=== PATIENT | female | born 1950 | race Caucasian/White ===

== ENCOUNTER → 2016-09-01 | Outpatient (CLI) | payer MEDICAID ==
[2016-09-01 11:31] LABS: CHLORIDE,CL 108 mmol/L (98-110); SODIUM,NA 138 mmol/L (136-146)
== END ==
LOC: MW.CHIM 10:50
PROVIDERS: ATTEND Internal Medicine
DX: I10 Essential (primary) hypertension (principal)
CPT/HCPCS: 36415; 80053; 80061; 84443; 85025

== ENCOUNTER 2019-03-17 06:12 | Observation (INO) | payer MEDICAID, MEDICARE ==
--- NOTE | 2019-03-17 06:45 | EDM.PDOC ---
<Toni Abbott - Last Filed: 03/17/19 06:47> ED HPI GENERAL MEDICAL PROBLEM - General Chief Complaint: ENT Problem Stated Complaint: FALL- FACIAL TRAUMA Time Seen by Provider: 03/17/19 06:45 Source of Information: Reports: Patient - History of Present Illness INITIAL COMMENTS - FREE TEXT/NARRATIVE: HISTORY AND PHYSICAL: History of present illness: [Patient with dementia presents with syncopal episode and/or slip and fall, she is not certain if she passed out after rising from bed or slipped and fell, she struck her face on a bedside stand, she did have epistaxis which has resolved] Current denies fever nausea vomiting diarrhea constipation chest pain shortness breath headache dizziness or palpitation no bowel or urine symptoms Review of systems: As per history of present illness and below otherwise all systems reviewed and negative. Past medical history: As per history of present illness and as reviewed below otherwise noncontributory. Surgical history: As per history of present illness and as reviewed below otherwise noncontributory. Social history: No reported history of drug or alcohol abuse. Family history: As per history of present illness and as reviewed below otherwise noncontributory. Physical exam: HEENT: Atraumatic, normocephalic, pupils reactive, negative for conjunctival pallor or scleral icterus, mucous membranes moist, throat clear, neck supple, nontender, trachea midline. Mild swelling left facial Lungs: Clear to auscultation, breath sounds equal bilaterally, chest nontender. Heart: S1S2, regular, negative for clicks, rubs, or JVD. Abdomen: Soft, nondistended, nontender. Negative for masses or hepatosplenomegaly. Negative for costovertebral tenderness. Pelvis: Stable nontender. Genitourinary: Deferred. Rectal: Deferred. Extremities: Atraumatic, negative for cords or calf pain. Neurovascular unremarkable. Neuro: Awake, alert, oriented. Cranial nerves II through XII unremarkable. Cerebellum unremarkable. Motor and sensory unremarkable throughout. Exam nonfocal. Diagnostics: [CBC CMP UA troponin EKG Chest 1 view pelvis 1 view ] CT head, cervical spine, maxillofacial no contrast Therapeutics: [] Impression: [ epistaxis resolved facial contusion/ injury ] chronic history baseline Definitive disposition and diagnosis as appropriate pending reevaluation and review of above. 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: Musculoskeletal History: Reports: None Neurological History: Reports: Alzheimers Disease Psychiatric History: Reports: Alzheimers Disease Endocrine/Metabolic History: Reports: None Hematologic History: Reports: None Immunologic History: Reports: None Oncologic (Cancer) History: Reports: None Dermatologic History: Reports: None - Infectious Disease History Infectious Disease History: Reports: Meningitis - Past Surgical History Head Surgeries/Procedures: Reports: None HEENT Surgical History: Reports: None Cardiovascular Surgical History: Reports: None Respiratory Surgical History: Reports: None GI Surgical History: Reports: None Female Surgical History: Reports: Oophorectomy Endocrine Surgical History: Reports: None Musculoskeletal Surgical History: Reports: None Social & Family History - Family History Family Medical History: Noncontributory Cardiac: Reports: Hypertension - Tobacco Use Smoking Status *Q: Never Smoker - Recreational Drug Use Recreational Drug Use: No Course - Vital Signs Last Recorded V/S: Last Vital Signs Temp 35.8 C 03/17/19 06:20 Pulse 66 03/17/19 07:05 Resp 16 03/17/19 07:05 BP 170/78 H 03/17/19 07:05 Pulse Ox 99 03/17/19 07:05 - Orders/Labs/Meds Orders: Active Orders 24 hr Category Date Time Status EKG Documentation Completion [RC] STAT Care 03/17/19 06:45 Active UA RFX RADU AND CULT IF INDIC [URIN] Stat Lab 03/17/19 08:02 Ordered Labs: Laboratory Tests 03/17/19 03/17/19 03/17/19 Range/Units 07:00 07:00 07:00 WBC 9.39 (4.0-11.0) K/uL RBC 3.99 L (4.30-5.90) M/uL Hgb 12.5 (12.0-16.0) g/dL Hct 36.9 (36.0-46.0) % MCV 92.5 (80.0-98.0) fL MCH 31.3 (27.0-32.0) pg MCHC 33.9 (31.0-37.0) g/dL RDW Std Deviation 44.7 (28.0-62.0) fl RDW Coeff of Sb 13 (11.0-15.0) % Plt Count 243 (150-400) K/uL MPV 9.50 (7.40-12.00) fL Neut % (Auto) 68.8 (48.0-80.0) % Lymph % (Auto) 19.7 (16.0-40.0) % [place] % (Auto) 6.8 (0.0-15.0) % Eos % (Auto) 4.3 (0.0-7.0) % Baso % (Auto) 0.4 (0.0-1.5) % Neut # (Auto) 6.5 H (1.4-5.7) K/uL Lymph # (Auto) 1.9 (0.6-2.4) K/uL [place] # (Auto) 0.6 (0.0-0.8) K/uL Eos # (Auto) 0.4 (0.0-0.7) K/uL Baso # (Auto) 0.0 (0.0-0.1) K/uL Nucleated RBC % 0.0 /100WBC Nucleated RBCs # 0 K/uL INR 1.03 Sodium 140 (136-145) mmol/L Potassium 3.3 L (3.5-5.1) mmol/L Chloride 108 H (98-107) mmol/L Carbon Dioxide 20.7 L (21.0-32.0) mmol/L BUN 19 H (7.0-18.0) mg/dL Creatinine 0.9 (0.6-1.0) mg/dL Est Cr Clr Drug Dosing TNP Estimated GFR (MDRD) > 60.0 ml/min Glucose 100 (74-106) mg/dL Calcium 8.6 (8.5-10.1) mg/dL Total Bilirubin 0.9 (0.2-1.0) mg/dL AST 14 L (15-37) IU/L ALT 19 (14-63) IU/L Alkaline Phosphatase 79 (46-116) U/L Troponin I < 0.050 (0.000-0.056) ng/mL Total Protein 7.1 (6.4-8.2) g/dL Albumin 3.4 (3.4-5.0) g/dL Globulin 3.7 (2.6-4.0) g/dL Albumin/Globulin Ratio 0.9 (0.9-1.6) Departure - Departure Disposition: Refer to Observation Clinical Impression: Syncope, Fall, Trauma - Discharge Information Referrals: Tiffanie Houston MD [Primary Care Provider] - Forms: ED Department Discharge <Reji Newsome - Last Filed: 03/17/19 08:13> ED ROS GENERAL - Review of Systems Review Of Systems: Comprehensive ROS is negative, except as noted in HPI. ED EXAM, GENERAL - Physical Exam Exam: See Below (See dictation) Departure - Departure Time of Disposition: 08:12 Condition: Good
[2019-03-17 07:26] LABS: BLOOD UREA NITROGEN,BUN 19 mg/dL (7.0-18.0); CARBON DIOXIDE,CO2 20.7 mmol/L (21.0-32.0); CHLORIDE,CL 108 mmol/L (98-107); GLUCOSE RANDOM 100 mg/dL (74-106); POTASSIUM,K 3.3 mmol/L (3.5-5.1); SODIUM,NA 140 mmol/L (136-145)
--- NOTE | 2019-03-17 07:47 | CR ---
INDICATION: Syncope; patient fell. COMPARISON: None. TECHNIQUE: Portable AP chest. FINDINGS: Mild cardiomegaly. No acute pneumonic infiltrates or CHF. No pneumothorax or pleural effusion. Impression: 1. No acute pathology. 2. Mild cardiomegaly. Dictated by Giovanny oRberts MD @ Mar 17 2019 7:42AM Signed by Dr. Giovanny Roberts @ Mar 17 2019 7:44AM
--- NOTE | 2019-03-17 07:51 | CT ---
INDICATION: Syncope; patient fell. COMPARISON: CT head without intravenous contrast July 30, 2015. TECHNIQUE: CT head without intravenous contrast; coronal and sagittal reformats. FINDINGS: No intracranial hemorrhage. No mass lesions. No evidence of shift of the midline structures. The calvarium is unremarkable. IMPRESSION: 1. No acute pathology. 2. No intracranial hemorrhage. 3. No mass lesions or shift of the midline structures. 4. No interval change. Please note that all CT scans at this facility use dose modulation, iterative reconstruction, and/or weight-based dosing when appropriate to reduce radiation dose to as low as reasonably achievable. Dictated by Giovanny Roberts MD @ Mar 17 2019 7:42AM Signed by Dr. Giovanny Roberts @ Mar 17 2019 7:48AM
--- NOTE | 2019-03-17 07:53 | CR ---
INDICATION: Syncope; patient fell. TECHNIQUE: Single AP radiograph pelvis. FINDINGS: No evidence of fracture. No bone or soft tissue abnormalities. Disc space narrowing and disk degeneration lower lumbar spine. IMPRESSION: 1. Negative rate radiographic examination of the pelvis. 2. Disc space narrowing and disc degeneration lower lumbar spine. Dictated by Giovanny Roberts MD @ Mar 17 2019 7:42AM Signed by Dr. Giovanny Roberts @ Mar 17 2019 7:52AM
--- NOTE | 2019-03-17 07:53 | CT ---
INDICATION: Syncope; patient fell. COMPARISON: None. TECHNIQUE: CT cervical spine without intravenous contrast; coronal and sagittal reformats. FINDINGS: No evidence of acute fracture or dislocation. C1-C2 articulation is unremarkable. The intervertebral disc spaces are well preserved and fail to reveal any abnormalities. The lung apices are unremarkable. IMPRESSION: Negative CT cervical spine. Please note that all CT scans at this facility use dose modulation, iterative reconstruction, and/or weight-based dosing when appropriate to reduce radiation dose to as low as reasonably achievable. Dictated by Giovanny Roberts MD @ Mar 17 2019 7:42AM Signed by Dr. Giovanny Roberts @ Mar 17 2019 7:51AM
--- NOTE | 2019-03-17 07:59 | CT ---
INDICATION: Syncope; patient fell. COMPARISON: CT head without intravenous contrast July 30, 2015. TECHNIQUE: CT facial bones without intravenous contrast; coronal and sagittal reformats. FINDINGS: No evidence of fracture involving the facial bones. Swollen nasal turbinates bilateral more on the left. chronic mucoperiosteal thickening involving the ethmoid and frontal sinuses bilateral. No fluid levels identified within the paranasal sinuses. The temporomandibular articulations are unremarkable. The zygomatic arches are normal. No pathology involving the orbits on either side. Soft tissue swelling identified overlying the anterior aspect of the left maxilla. Impression : 1. Soft tissue swelling overlying the anterior aspect left maxilla. 2. Swollen nasal turbinates bilateral more on the left. 3. No evidence of fracture involving the facial bones. Please note that all CT scans at this facility use dose modulation, iterative reconstruction, and/or weight-based dosing when appropriate to reduce radiation dose to as low as reasonably achievable. Dictated by Giovanny Roberts MD @ Mar 17 2019 7:42AM Signed by Dr. Giovanny Roberts @ Mar 17 2019 7:57AM
[2019-03-17] MEDS ORDERED: Pneumococcal Polyvalent-23 Vaccine 0.5 ML SDV IM ONE (09:18)
[2019-03-17] MEDS ORDERED: Ondansetron 4 MG Tab.DIS PO PRN (11:50)
[2019-03-17] MEDS ORDERED: Acetaminophen 325 MG Tab PO PRN (11:50)
[2019-03-17] MEDS ORDERED: Ondansetron 4 MG/2 ML SDV IVPUSH PRN (11:50)
[2019-03-17] MEDS ORDERED: Diltiazem 180 MG Cap.CD PO SCH (11:54)
[2019-03-17] MEDS ORDERED: Sodium Chloride 0.9% 1,000 ML IV ONE (11:55)
[2019-03-17] MEDS ORDERED: Potassium Chloride 20 MEQ Tab.ER PO ONE (12:02)
--- NOTE | 2019-03-17 12:06 | PCM.HP.2 ---
H&P History of Present Illness - General Date of Service: 03/17/19 Admit Problem/Dx: Admission Diagnosis/Problem Admission Diagnosis/Problem Syncope - History of Present Illness Initial Comments - Free Text/Narative: 69-year-old female presented to ER after falling when trying to get out of her bed at around 5 AM this morning. She has a PMH of alzheimer's dementia and HTN. She lives with her daughter who heard her fall and found her lying on the floor of her bedroom. Patient reports that she fell and hit her head on her night dresser. Patient reports that she remembers falling but cannot provide any further details. Daughter reports that she cannot provide any further specifics of the fall as the patient has alzheimer's dementia and keeps changing the story of the fall. Daughter reports that patient was not unconscious when she found her and was not on the floor for very long as she helped her get up as soon she heard her fall from her bedroom next door. When asked what caused the fall, the patient reports the she slipped on her socks. Patient has no history of syncope or heart conditions. No stroke history. Daughter reports that patient has been in her normal state of health. She reports that she is unsteady on her feet most of the time. Patient is complaining of some facial pain but otherwise has no complaints. Daughter reports that patient does not eat or drink much at home. In the ER, CT neck, CT facial bones, CT head, pelvic x-ray and CXR were all negative for any acute pathology. Patient admitted for further evaluation. nasal bridge Pain Score (Numeric/FACES): 3 - Related Data Allergies/Adverse Reactions: Allergies Allergy/AdvReac Type Severity Reaction Status Date / Time No Known Allergies Allergy Verified 03/17/19 09:26 Home Medications: Home Meds Diltiazem HCl [Cartia Xt] 180 mg PO DAILY 04/23/15 [History] Donepezil [Aricept] 5 mg PO BEDTIME 04/23/15 [History] Losartan Potassium 100 mg PO DAILY 03/17/19 [History] Megestrol Acetate 20 mg PO DAILY 03/17/19 [History] Past Medical History HEENT History: Reports: None Cardiovascular History: Reports: Hypertension Respiratory History: Reports: None Gastrointestinal History: Reports: None Genitourinary History: Reports: None 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 History: Reports: None Neurological History: Reports: Alzheimers Disease Psychiatric History: Reports: Alzheimers Disease Endocrine/Metabolic History: Reports: None Hematologic History: Reports: None Immunologic History: Reports: None Oncologic (Cancer) History: Reports: None Dermatologic History: Reports: None - Infectious Disease History Infectious Disease History: Reports: Chicken Pox, Measles, Meningitis, Mumps, Rubella - Past Surgical History Head Surgeries/Procedures: Reports: None HEENT Surgical History: Reports: None Cardiovascular Surgical History: Reports: None Respiratory Surgical History: Reports: None GI Surgical History: Reports: None Female Surgical History: Reports: Oophorectomy Endocrine Surgical History: Reports: None Musculoskeletal Surgical History: Reports: None Social & Family History - Family History Family Medical History: Noncontributory Cardiac: Reports: Hypertension - Tobacco Use Smoking Status *Q: Never Smoker Second Hand Smoke Exposure: No - Caffeine Use Caffeine Use: Reports: Coffee - Recreational Drug Use Recreational Drug Use: No H&P Review of Systems - Review of Systems: Review Of Systems: Comprehensive ROS is negative, except as noted in HPI. Exam - Exam Exam: See Below - Vital Signs Vital Signs: Last Vital Signs Temp 97.4 F 03/17/19 09:11 Pulse 72 03/17/19 09:11 Resp 18 03/17/19 09:11 BP 176/76 H 03/17/19 09:11 Pulse Ox 100 03/17/19 09:11 Weight: 122 lb 5.705 oz - Exam General: Alert, Cooperative, Mild Distress HEENT: Conjunctiva Clear, EOMI, Mucosa Moist & [place], Posterior Pharynx Clear, Other (bruising around nose) Neck: Supple, Trachea Midline Lungs: Clear to Auscultation, Normal Respiratory Effort Cardiovascular: Regular Rate, Regular Rhythm GI/Abdominal Exam: Normal Bowel Sounds, Soft, Non-Tender, No Distention Extremities: Normal Inspection, No Pedal Edema Peripheral Pulses: 2+: Posterior Tibial (L), Posterior Tibial (R) Skin: Warm, Dry, Intact Neurological: Cranial Nerves Intact, Strength Equal Bilateral, Normal Speech, Normal Tone Neuro Extensive - Mental Status: Alert Psychiatric: Alert, Normal Affect, Normal Mood - Patient Data Lab Results Last 24 hrs: Laboratory Results - last 24 hr 03/17/19 03/17/19 03/17/19 Range/Units 07:00 07:00 07:00 WBC 9.39 (4.0-11.0) K/uL RBC 3.99 L (4.30-5.90) M/uL Hgb 12.5 (12.0-16.0) g/dL Hct 36.9 (36.0-46.0) % MCV 92.5 (80.0-98.0) fL MCH 31.3 (27.0-32.0) pg MCHC 33.9 (31.0-37.0) g/dL RDW Std Deviation 44.7 (28.0-62.0) fl RDW Coeff of Sb 13 (11.0-15.0) % Plt Count 243 (150-400) K/uL MPV 9.50 (7.40-12.00) fL Neut % (Auto) 68.8 (48.0-80.0) % Lymph % (Auto) 19.7 (16.0-40.0) % [place] % (Auto) 6.8 (0.0-15.0) % Eos % (Auto) 4.3 (0.0-7.0) % Baso % (Auto) 0.4 (0.0-1.5) % Neut # (Auto) 6.5 H (1.4-5.7) K/uL Lymph # (Auto) 1.9 (0.6-2.4) K/uL [place] # (Auto) 0.6 (0.0-0.8) K/uL Eos # (Auto) 0.4 (0.0-0.7) K/uL Baso # (Auto) 0.0 (0.0-0.1) K/uL Nucleated RBC % 0.0 /100WBC Nucleated RBCs # 0 K/uL INR 1.03 Sodium 140 (136-145) mmol/L Potassium 3.3 L (3.5-5.1) mmol/L Chloride 108 H (98-107) mmol/L Carbon Dioxide 20.7 L (21.0-32.0) mmol/L BUN 19 H (7.0-18.0) mg/dL Creatinine 0.9 (0.6-1.0) mg/dL Est Cr Clr Drug Dosing TNP Estimated GFR (MDRD) > 60.0 ml/min Glucose 100 (74-106) mg/dL Calcium 8.6 (8.5-10.1) mg/dL Total Bilirubin 0.9 (0.2-1.0) mg/dL AST 14 L (15-37) IU/L ALT 19 (14-63) IU/L Alkaline Phosphatase 79 (46-116) U/L Troponin I < 0.050 (0.000-0.056) ng/mL Total Protein 7.1 (6.4-8.2) g/dL Albumin 3.4 (3.4-5.0) g/dL Globulin 3.7 (2.6-4.0) g/dL Albumin/Globulin Ratio 0.9 (0.9-1.6) Urine Color Urine Appearance Urine pH (5.0-8.0) Ur Specific [place] (1.001-1.035) Urine Protein (NEGATIVE) mg/dL Urine Glucose (UA) (NEGATIVE) mg/dL Urine Ketones (NEGATIVE) mg/dL Urine Occult Blood (NEGATIVE) Urine Nitrite (NEGATIVE) Urine Bilirubin (NEGATIVE) Urine Urobilinogen (<2.0) EU/dL Ur Leukocyte Esterase (NEGATIVE) Urine RBC (0-2/HPF) Urine WBC (0-5/HPF) Ur Epithelial Cells (NONE-FEW) Urine Bacteria (NEGATIVE) 03/17/19 Range/Units 08:02 WBC (4.0-11.0) K/uL RBC (4.30-5.90) M/uL Hgb (12.0-16.0) g/dL Hct (36.0-46.0) % MCV (80.0-98.0) fL MCH (27.0-32.0) pg MCHC (31.0-37.0) g/dL RDW Std Deviation (28.0-62.0) fl RDW Coeff of Sb (11.0-15.0) % Plt Count (150-400) K/uL MPV (7.40-12.00) fL Neut % (Auto) (48.0-80.0) % Lymph % (Auto) (16.0-40.0) % [place] % (Auto) (0.0-15.0) % Eos % (Auto) (0.0-7.0) % Baso % (Auto) (0.0-1.5) % Neut # (Auto) (1.4-5.7) K/uL Lymph # (Auto) (0.6-2.4) K/uL [place] # (Auto) (0.0-0.8) K/uL Eos # (Auto) (0.0-0.7) K/uL Baso # (Auto) (0.0-0.1) K/uL Nucleated RBC % /100WBC Nucleated RBCs # K/uL INR Sodium (136-145) mmol/L Potassium (3.5-5.1) mmol/L Chloride (98-107) mmol/L Carbon Dioxide (21.0-32.0) mmol/L BUN (7.0-18.0) mg/dL Creatinine (0.6-1.0) mg/dL Est Cr Clr Drug Dosing Estimated GFR (MDRD) ml/min Glucose (74-106) mg/dL Calcium (8.5-10.1) mg/dL Total Bilirubin (0.2-1.0) mg/dL AST (15-37) IU/L ALT (14-63) IU/L Alkaline Phosphatase (46-116) U/L Troponin I (0.000-0.056) ng/mL Total Protein (6.4-8.2) g/dL Albumin (3.4-5.0) g/dL Globulin (2.6-4.0) g/dL Albumin/Globulin Ratio (0.9-1.6) Urine Color YELLOW Urine Appearance CLEAR Urine pH 6.0 (5.0-8.0) Ur Specific [place] 1.010 (1.001-1.035) Urine Protein NEGATIVE (NEGATIVE) mg/dL Urine Glucose (UA) NEGATIVE (NEGATIVE) mg/dL Urine Ketones NEGATIVE (NEGATIVE) mg/dL Urine Occult Blood SMALL H (NEGATIVE) Urine Nitrite NEGATIVE (NEGATIVE) Urine Bilirubin NEGATIVE (NEGATIVE) Urine Urobilinogen 0.2 (<2.0) EU/dL Ur Leukocyte Esterase NEGATIVE (NEGATIVE) Urine RBC 0-3 (0-2/HPF) Urine WBC 0-3 (0-5/HPF) Ur Epithelial Cells OCCASIONAL (NONE-FEW) Urine Bacteria FEW (NEGATIVE) Result Diagrams: 03/17/19 07:00 03/17/19 07:00 Problem List Initiated/Reviewed/Updated: Yes Orders Last 24hrs: Active Orders 24 hr Category Date Time Status Patient Status [ADT] Stat ADT 03/17/19 08:13 Active Antiembolic Devices [RC] PER UNIT ROUTINE Care 03/17/19 11:51 Active Oxygen Therapy [RC] PRN Care 03/17/19 11:50 Active Telemetry Monitoring [Cardiac Monitoring] [RC] . Care 03/17/19 08:55 Active DIRECTED Telemetry Monitoring [Cardiac Monitoring] [RC] . Care 03/17/19 11:54 Active DIRECTED Up With Assistance [RC] ASDIRECTED Care 03/17/19 11:50 Active VTE/DVT Education [RC] PER UNIT ROUTINE Care 03/17/19 11:50 Active Vital Signs [RC] Q4H Care 03/17/19 11:50 Active Consult to Physical Therapy [PT Evaluation and Cons 03/17/19 11:54 Active Treatment] [CONS] Routine Regular Diet [DIET] Diet 03/17/19 Breakfast Active Acetaminophen [Tylenol] Med 03/17/19 11:50 Ordered 650 mg PO Q4H PRN Diltiazem [Cardizem CD] Med 03/17/19 11:54 Ordered 180 mg PO DAILY Donepezil [Aricept] Med 03/17/19 21:00 Ordered 5 mg PO BEDTIME Ondansetron [Zofran ODT] Med 03/17/19 11:50 Ordered 4 mg PO Q4H PRN Ondansetron [Zofran] Med 03/17/19 11:50 Ordered 4 mg IVPUSH Q4H PRN Potassium Chloride [Klor-Con M20] Med 03/17/19 12:02 Once 40 meq PO ONETIME ONE Sodium Chloride 0.9% [Normal Saline] 1,000 ml Med 03/17/19 11:55 Ordered IV STAT Sequential Compression Device [OM.PC] Per Unit Routine Oth 03/17/19 11:50 Ordered Resuscitation Status Routine Resus Stat 03/17/19 11:50 Ordered Medication Orders Acetaminophen (Tylenol) 650 mg PO Q4H PRN PRN Reason: Pain (Mild 1-3)/fever Diltiazem HCl (Cardizem Cd) 180 mg PO DAILY JAIDA Donepezil HCl (Aricept) 5 mg PO BEDTIME JAIDA Sodium Chloride (Normal Saline) 1,000 mls @ 75 mls/hr IV STAT ONE Stop: 03/18/19 01:14 Ondansetron HCl (Zofran Odt) 4 mg PO Q4H PRN PRN Reason: nausea, able to take PO Ondansetron HCl (Zofran) 4 mg IVPUSH Q4H PRN PRN Reason: Nausea Potassium Chloride (Klor-Con M20) 40 meq PO ONETIME ONE Stop: 03/17/19 12:03 Assessment/Plan Comment:: Assessment: 1. Head trauma s/p fall. 2. Hypokalemia, mild. 3. HTN. 4. History of Alzheimer's dementia. Plan: 1. Will keep patient on telemetry and monitor for any cardiac events, hydrate with IV NS 1L @ 75 cc/hr, order PT/OT. Will continue to monitor. CT scans showed no acute fractures or bleeding. Patient is poor historian and cannot provide symptoms experienced prior to falling. 2. For hypokalemia, replete with 40 mEq KCL PO. 3. For past medical history, will continue home medications.
[2019-03-17] MEDS: Memantine 10 MG Tab PO SCH (14:55)
[2019-03-17] MEDS ORDERED: Donepezil 5 MG Tab PO SCH (21:00)
[2019-03-18 06:23] LABS: BLOOD UREA NITROGEN,BUN 13 mg/dL (7.0-18.0); CARBON DIOXIDE,CO2 20.5 mmol/L (21.0-32.0); CHLORIDE,CL 109 mmol/L (98-107); GLUCOSE RANDOM 99 mg/dL (74-106); POTASSIUM,K 3.8 mmol/L (3.5-5.1); SODIUM,NA 141 mmol/L (136-145)
[2019-03-18] MEDS ORDERED: Diltiazem 180 MG Cap.CD PO SCH (09:00)
[2019-03-18] MEDS ORDERED: Losartan 50 MG Tab PO SCH (09:00)
[2019-03-18] MEDS: Memantine 10 MG Tab PO SCH (09:28)
[2019-03-18 12:48] VITALS: BP 131/74; PULSE 86
--- NOTE | 2019-03-18 12:52 | PCM.DCSUM1 ---
<Doug Mohamud - Last Filed: 03/18/19 12:47> Discharge Summary - Hospital Course Free Text/Narrative:: 69-year-old female admitted after traumatic head injury after falling at home. She has a PMH of alzheimer's dementia and HTN. Due to patient's dementia, she was not able to provided specifics of her fall. She lives with her daughter who heard her fall and found her lying on the floor and was awake. No witnessed seizure activity. No bowel or bladder incontinence. CT neck was negative. CT facial was negative for any fractures. Pelvic x-rays and CXR's were also negative. Patient was placed on telemetry overnight and there were no events reported. She remained hemodynamically stable throughout her hospitalization. No recurrence of falls. PT was also consulted during her stay for ambulation. Patient discharged in stable condition. Advised to follow-up with her PCP and neurologist. - Discharge Data Discharge Date: 03/18/19 Discharge Disposition: Home, Self-Care 01 Condition: Stable - Referral to Home Health Primary Care Physician: Tiffanie Houston MD - Patient Summary/Data Consults: Consultations 03/17/19 11:54 Consult to Physical Therapy [PT Evaluation and Treatment] [CONS] Routine - Patient Instructions Diet: Regular Diet as Tolerated Activity: As Tolerated Notify Provider of: Fever, Increased Pain, Swelling and Redness, Drainage, Nausea and/or Vomiting - Discharge Plan *PRESCRIPTION DRUG MONITORING PROGRAM REVIEWED*: Not Applicable *COPY OF PRESCRIPTION DRUG MONITORING REPORT IN PATIENT [place]: Not Applicable Home Medications: Home Meds Donepezil [Aricept] 5 mg PO BEDTIME 04/23/15 [History] Losartan Potassium 50 mg PO DAILY 03/17/19 [History] Megestrol Acetate 20 mg PO DAILY 03/17/19 [History] Memantine [Namenda] 10 mg PO DAILY 03/17/19 [History] Patient Handouts: Near-Syncope, [id number] Referrals: Tiffanie Houston MD [Primary Care Provider] - 03/24/19 9:00 am - Discharge Summary/Plan Comment DC Time >30 min.: No - Patient Data Vitals - Most Recent: Last Vital Signs Temp 97.6 F 03/18/19 08:00 Pulse 75 03/18/19 08:00 Resp 16 03/18/19 08:00 BP 149/82 H 03/18/19 09:28 Pulse Ox 99 03/18/19 11:50 Weight - Most Recent: 55.3 kg I&O - Last 24 hours: Intake & Output 03/17/19 03/18/19 03/18/19 22:59 06:59 14:59 Intake Total 893 600 800 Output Total 350 1100 Balance 543 -500 800 Lab Results - Last 24 hrs: Laboratory Results - last 24 hr 03/17/19 03/18/19 03/18/19 Range/Units 07:00 05:45 05:45 WBC 8.48 (4.0-11.0) K/uL RBC 4.08 L (4.30-5.90) M/uL Hgb 12.8 (12.0-16.0) g/dL Hct 37.8 (36.0-46.0) % MCV 92.6 (80.0-98.0) fL MCH 31.4 (27.0-32.0) pg MCHC 33.9 (31.0-37.0) g/dL RDW Std Deviation 45.6 (28.0-62.0) fl RDW Coeff of Sb 14 (11.0-15.0) % Plt Count 253 (150-400) K/uL MPV 9.90 (7.40-12.00) fL Neut % (Auto) 66.6 (48.0-80.0) % Lymph % (Auto) 22.3 (16.0-40.0) % [place] % (Auto) 8.3 (0.0-15.0) % Eos % (Auto) 2.6 (0.0-7.0) % Baso % (Auto) 0.2 (0.0-1.5) % Neut # (Auto) 5.7 (1.4-5.7) K/uL Lymph # (Auto) 1.9 (0.6-2.4) K/uL [place] # (Auto) 0.7 (0.0-0.8) K/uL Eos # (Auto) 0.2 (0.0-0.7) K/uL Baso # (Auto) 0.0 (0.0-0.1) K/uL Nucleated RBC % 0.0 /100WBC Nucleated RBCs # 0 K/uL Sodium 141 (136-145) mmol/L Potassium 3.8 (3.5-5.1) mmol/L Chloride 109 H (98-107) mmol/L Carbon Dioxide 20.5 L (21.0-32.0) mmol/L BUN 13 (7.0-18.0) mg/dL Creatinine 0.8 (0.6-1.0) mg/dL Est Cr Clr Drug Dosing 46.33 mL/min Estimated GFR (MDRD) > 60.0 ml/min Glucose 99 (74-106) mg/dL Calcium 8.5 (8.5-10.1) mg/dL Magnesium 2.0 (1.8-2.4) mg/dL Med Orders - Current: Current Medications Acetaminophen (Tylenol) 650 mg PO Q4H PRN PRN Reason: Pain (Mild 1-3)/fever Last Admin: 03/17/19 22:58 Dose: 650 mg Donepezil HCl (Aricept) 5 mg PO BEDTIME [facility] Last Admin: 03/17/19 20:54 Dose: 5 mg Losartan Potassium (Cozaar) 50 mg PO DAILY [facility] Last Admin: 03/18/19 09:28 Dose: 50 mg Memantine (Namenda) 10 mg PO DAILY [facility] Last Admin: 03/18/19 09:28 Dose: 10 mg Ondansetron HCl (Zofran Odt) 4 mg PO Q4H PRN PRN Reason: nausea, able to take PO Ondansetron HCl (Zofran) 4 mg IVPUSH Q4H PRN PRN Reason: Nausea Discontinued Medications Diltiazem HCl (Cardizem Cd) 180 mg PO DAILY [facility] Diltiazem HCl (Cardizem Cd) 180 mg PO DAILY [facility] Last Admin: 03/17/19 12:15 Dose: 180 mg Sodium Chloride (Normal Saline) 1,000 mls @ 75 mls/hr IV STAT ONE Stop: 03/18/19 01:14 Last Admin: 03/17/19 12:07 Dose: 75 mls/hr Pneumococcal Polyvalent Vaccine (Pneumovax 23) 0.5 ml IM .ONCE ONE Stop: 03/17/19 09:19 Last Admin: 03/18/19 12:42 Dose: Not Given Potassium Chloride (Klor-Con M20) 40 meq PO ONETIME ONE Stop: 03/17/19 12:03 Last Admin: 03/17/19 12:15 Dose: 40 meq - Exam General: Reports: Alert, Oriented, No Acute Distress HEENT: Reports: Other (ecchymosis over left side of nose, left cheek and left jaw) Lungs: Reports: Clear to Auscultation, Normal Respiratory Effort Cardiovascular: Reports: Regular Rate, Regular Rhythm GI/Abdominal Exam: Normal Bowel Sounds, Soft, Non-Tender, No Distention Extremities: Normal Inspection, No Pedal Edema Psy/Mental Status: Reports: Alert <Shashi Smith - Last Filed: 03/18/19 19:00> Discharge Summary - Referral to Home Health Primary Care Physician: Tiffanie Houston MD - Patient Summary/Data Consults: Consultations 03/17/19 11:54 Consult to Physical Therapy [PT Evaluation and Treatment] [CONS] Routine - Patient Data Vitals - Most Recent: Last Vital Signs Temp 36.7 C 03/18/19 12:00 Pulse 86 03/18/19 12:00 Resp 20 03/18/19 12:00 BP 131/74 03/18/19 12:00 Pulse Ox 100 03/18/19 12:00 I&O - Last 24 hours: Intake & Output 03/18/19 03/18/19 03/18/19 06:59 14:59 22:59 Intake Total 600 800 Output Total 1100 Balance -500 800 Lab Results - Last 24 hrs: Laboratory Results - last 24 hr 03/18/19 03/18/19 Range/Units 05:45 05:45 WBC 8.48 (4.0-11.0) K/uL RBC 4.08 L (4.30-5.90) M/uL Hgb 12.8 (12.0-16.0) g/dL Hct 37.8 (36.0-46.0) % MCV 92.6 (80.0-98.0) fL MCH 31.4 (27.0-32.0) pg MCHC 33.9 (31.0-37.0) g/dL RDW Std Deviation 45.6 (28.0-62.0) fl RDW Coeff of Sb 14 (11.0-15.0) % Plt Count 253 (150-400) K/uL MPV 9.90 (7.40-12.00) fL Neut % (Auto) 66.6 (48.0-80.0) % Lymph % (Auto) 22.3 (16.0-40.0) % [place] % (Auto) 8.3 (0.0-15.0) % Eos % (Auto) 2.6 (0.0-7.0) % Baso % (Auto) 0.2 (0.0-1.5) % Neut # (Auto) 5.7 (1.4-5.7) K/uL Lymph # (Auto) 1.9 (0.6-2.4) K/uL [place] # (Auto) 0.7 (0.0-0.8) K/uL Eos # (Auto) 0.2 (0.0-0.7) K/uL Baso # (Auto) 0.0 (0.0-0.1) K/uL Nucleated RBC % 0.0 /100WBC Nucleated RBCs # 0 K/uL Sodium 141 (136-145) mmol/L Potassium 3.8 (3.5-5.1) mmol/L Chloride 109 H (98-107) mmol/L Carbon Dioxide 20.5 L (21.0-32.0) mmol/L BUN 13 (7.0-18.0) mg/dL Creatinine 0.8 (0.6-1.0) mg/dL Est Cr Clr Drug Dosing 46.33 mL/min Estimated GFR (MDRD) > 60.0 ml/min Glucose 99 (74-106) mg/dL Calcium 8.5 (8.5-10.1) mg/dL Med Orders - Current: Current Medications Discontinued Medications Acetaminophen (Tylenol) 650 mg PO Q4H PRN PRN Reason: Pain (Mild 1-3)/fever Last Admin: 03/17/19 22:58 Dose: 650 mg Diltiazem HCl (Cardizem Cd) 180 mg PO DAILY [facility] Diltiazem HCl (Cardizem Cd) 180 mg PO DAILY [facility] Last Admin: 03/17/19 12:15 Dose: 180 mg Donepezil HCl (Aricept) 5 mg PO BEDTIME [facility] Last Admin: 03/17/19 20:54 Dose: 5 mg Sodium Chloride (Normal Saline) 1,000 mls @ 75 mls/hr IV STAT ONE Stop: 03/18/19 01:14 Last Admin: 03/17/19 12:07 Dose: 75 mls/hr Losartan Potassium (Cozaar) 50 mg PO DAILY [facility] Last Admin: 03/18/19 09:28 Dose: 50 mg Memantine (Namenda) 10 mg PO DAILY [facility] Last Admin: 03/18/19 09:28 Dose: 10 mg Ondansetron HCl (Zofran Odt) 4 mg PO Q4H PRN PRN Reason: nausea, able to take PO Ondansetron HCl (Zofran) 4 mg IVPUSH Q4H PRN PRN Reason: Nausea Pneumococcal Polyvalent Vaccine (Pneumovax 23) 0.5 ml IM .ONCE ONE Stop: 03/17/19 09:19 Last Admin: 03/18/19 12:42 Dose: Not Given Potassium Chloride (Klor-Con M20) 40 meq PO ONETIME ONE Stop: 03/17/19 12:03 Last Admin: 03/17/19 12:15 Dose: 40 meq - Free Text/Narrative Note: I have seen and evaluated the patient with the resident. I have discussed findings and treatment plan with the resident. I agree with the assessment and plan in the following note.
== END 2019-03-18 12:30 | disposition home or self-care (01) ==
LOC: MW.ED 06:12 → MW.MS 08:39
PROVIDERS: ADMIT Internal Medicine; ATTEND Internal Medicine
DX: S09.90XA Unspecified injury of head, initial encounter (principal); I10 Essential (primary) hypertension; G30.9 Alzheimer's disease, unspecified; E87.6 Hypokalemia; F02.80 Dementia in other diseases classified elsewhere, unspecified severity, without behavioral disturbance, psychotic disturbance, mood disturbance, and anxiety; W06.XXXA Fall from bed, initial encounter; Y92.003 Bedroom of unspecified non-institutional (private) residence as the place of occurrence of the external cause; Z79.899 Other long term (current) drug therapy
CPT/HCPCS: 36415; 70450; 70486; 71045; 72125; 72170; 80048; 80053; 81001; 83735; 84484; 85025; 85610; 93005; 96360; 96361; 97161; 99285; A9270; G0378; J7040; 99284

== ENCOUNTER 2019-03-20 08:18 | Emergency (ER) | payer MEDICAID ==
--- NOTE | 2019-03-20 08:31 | EDM.PDOC ---
ED HPI GENERAL MEDICAL PROBLEM - General Chief Complaint: ENT Problem Stated Complaint: BLOODY NOSE Time Seen by Provider: 03/20/19 08:30 Source of Information: Reports: Patient, Family History Limitations: Reports: No Limitations - History of Present Illness INITIAL COMMENTS - FREE TEXT/NARRATIVE: HISTORY AND PHYSICAL: History of present illness: Patient is a 69-year-old female presents to the ED with complaint of nose bleeds. Patient had a fall 3 days ago. She had a negative head and maxillofacial CT other than left nasal turbinate swelling. Labs were unremarkable. Patient was admitted for observation. She states over the last 2 days she is having nose bleeds on and off. The bleeding will stop after 20 minutes without any intervention or applying pressure. Patient denies headache, chest pain, shortness of breath. She has history of hypertension and has not taken her medications this morning. Review of systems: As per history of present illness and below otherwise all systems reviewed and negative. Past medical history: As per history of present illness and as reviewed below otherwise noncontributory. Surgical history: As per history of present illness and as reviewed below otherwise noncontributory. Social history: No reported history of drug or alcohol abuse. Family history: As per history of present illness and as reviewed below otherwise noncontributory. Physical exam: General: Patient sitting comfortably in no acute distress and nontoxic appearing HEENT: There is slight swelling or ecchymosis to the left side of the face. There is no active epistaxis. No septal hematoma or deviation noted. Atraumatic , normocephalic, pupils reactive, negative for conjunctival pallor or scleral icterus, mucous membranes moist, throat clear, neck supple, nontender, trachea midline. No meningeal signs. Lungs: Clear to auscultation, breath sounds equal bilaterally, chest nontender. Heart: S1S2, regular, negative for clicks, rubs, or overt murmur. Abdomen: Soft, nondistended, nontender. Negative for masses or hepatosplenomegaly. Negative for costovertebral tenderness. No rigidity, rebound , guarding. Pelvis: Stable nontender. Genitourinary: Deferred. Rectal: Deferred. Extremities: Atraumatic, negative for cords or calf pain. Neurovascular unremarkable. Neuro: Awake, alert, oriented. Cranial nerves II through XII unremarkable. Cerebellum unremarkable. Motor and sensory unremarkable throughout. Exam nonfocal. Notes: Diagnostics: CBC, CMP, PT/INR, PTT Therapeutics: [] Prescriptions: Impression: History of epistaxis Definitive disposition and diagnosis as appropriate pending reevaluation and review of above. - Related Data Allergies Allergy/AdvReac Type Severity Reaction Status Date / Time No Known Allergies Allergy Verified 03/20/19 08:31 Home Meds: Home Meds Donepezil [Aricept] 5 mg PO BEDTIME 04/23/15 [History] Losartan Potassium 50 mg PO DAILY 03/17/19 [History] Megestrol Acetate 20 mg PO DAILY 03/17/19 [History] Memantine [Namenda] 10 mg PO DAILY 03/17/19 [History] Past Medical History HEENT History: Reports: None Cardiovascular History: Reports: Hypertension Respiratory History: Reports: None Gastrointestinal History: Reports: None Genitourinary History: Reports: None [employer] History: Reports: Musculoskeletal History: Reports: None Neurological History: Reports: Alzheimers Disease Psychiatric History: Reports: Alzheimers Disease Endocrine/Metabolic History: Reports: None Hematologic History: Reports: None Immunologic History: Reports: None Oncologic (Cancer) History: Reports: None Dermatologic History: Reports: None - Infectious Disease History Infectious Disease History: Reports: Chicken Pox, Measles, Meningitis, Mumps, Rubella - Past Surgical History Head Surgeries/Procedures: Reports: None HEENT Surgical History: Reports: None Cardiovascular Surgical History: Reports: None Respiratory Surgical History: Reports: None GI Surgical History: Reports: None Female Surgical History: Reports: Oophorectomy Endocrine Surgical History: Reports: None Musculoskeletal Surgical History: Reports: None Social & Family History - Family History Family Medical History: Noncontributory Cardiac: Reports: Hypertension - Caffeine Use Caffeine Use: Reports: Coffee ED ROS ENT - Review of Systems Review Of Systems: Comprehensive ROS is negative, except as noted in HPI. ED EXAM, ENT - Physical Exam Exam: See Below (see dictation) Course - Vital Signs Last Recorded V/S: Last Vital Signs Temp 97.2 F 03/20/19 08:31 Pulse 87 03/20/19 08:31 Resp 18 03/20/19 08:31 BP 178/94 H 03/20/19 08:31 Pulse Ox 98 03/20/19 08:31 - Orders/Labs/Meds Labs: Laboratory Tests 03/20/19 03/20/19 03/20/19 Range/Units 08:44 08:44 08:44 WBC 7.52 (4.0-11.0) K/uL RBC 3.97 L (4.30-5.90) M/uL Hgb 12.6 (12.0-16.0) g/dL Hct 36.7 (36.0-46.0) % MCV 92.4 (80.0-98.0) fL MCH 31.7 (27.0-32.0) pg MCHC 34.3 (31.0-37.0) g/dL RDW Std Deviation 44.8 (28.0-62.0) fl RDW Coeff of Sb 13 (11.0-15.0) % Plt Count 252 (150-400) K/uL MPV 9.60 (7.40-12.00) fL Neut % (Auto) 62.4 (48.0-80.0) % Lymph % (Auto) 21.9 (16.0-40.0) % [place] % (Auto) 10.2 (0.0-15.0) % Eos % (Auto) 5.1 (0.0-7.0) % Baso % (Auto) 0.4 (0.0-1.5) % Neut # (Auto) 4.7 (1.4-5.7) K/uL Lymph # (Auto) 1.7 (0.6-2.4) K/uL [place] # (Auto) 0.8 (0.0-0.8) K/uL Eos # (Auto) 0.4 (0.0-0.7) K/uL Baso # (Auto) 0.0 (0.0-0.1) K/uL Nucleated RBC % 0.0 /100WBC Nucleated RBCs # 0 K/uL INR 1.00 APTT 24.8 (18.6-31.3) SEC Sodium 140 (136-145) mmol/L Potassium 3.7 (3.5-5.1) mmol/L Chloride 107 (98-107) mmol/L Carbon Dioxide 20.9 L (21.0-32.0) mmol/L BUN 25 H (7.0-18.0) mg/dL Creatinine 0.8 (0.6-1.0) mg/dL Est Cr Clr Drug Dosing 46.33 mL/min Estimated GFR (MDRD) > 60.0 ml/min Glucose 87 (74-106) mg/dL Calcium 9.1 (8.5-10.1) mg/dL Total Bilirubin 0.9 (0.2-1.0) mg/dL AST 16 (15-37) IU/L ALT 16 (14-63) IU/L Alkaline Phosphatase 91 (46-116) U/L Total Protein 7.4 (6.4-8.2) g/dL Albumin 3.6 (3.4-5.0) g/dL Globulin 3.8 (2.6-4.0) g/dL Albumin/Globulin Ratio 0.9 (0.9-1.6) Departure - Departure Time of Disposition: 09:22 Disposition: Home, Self-Care 01 Condition: Good Clinical Impression: History of epistaxis - Discharge Information Referrals: PCP,Unknown [Primary Care Provider] - Forms: ED Department Discharge Additional Instructions: The following information is given to patients seen in the emergency department who are being discharged to home. This information is to outline your options for follow-up care. We provide all patients seen in our emergency department with a follow-up referral. The need for follow-up, as well as the timing and circumstances, are variable depending upon the specifics of your emergency department visit. If you don't have a primary care physician on staff, we will provide you with a referral. We always advise you to contact your personal physician following an emergency department visit to inform them of the circumstance of the visit and for follow-up with them and/or the need for any referrals to a consulting specialist. The emergency department will also refer you to a specialist when appropriate. This referral assures that you have the opportunity for follow-up care with a specialist. All of these measure are taken in an effort to provide you with optimal care, which includes your follow-up. Under all circumstances we always encourage you to contact your private physician who remains a resource for coordinating your care. When calling for follow-up care, please make the office aware that this follow-up is from your recent emergency room visit. If for any reason you are refused follow-up, please contact the [facility] Emergency Department at and asked to speak to the emergency department charge nurse. [facility] [address] [place] [address] [facility] [address] [place] [id number] [facility] ENT Apply pressure to nose for nosebleeds as instructed, come to ED if you can not get bleeding to stop Follow up with ENT Return to ED as needed as discussed
[2019-03-20 09:17] LABS: BLOOD UREA NITROGEN,BUN 25 mg/dL (7.0-18.0); CARBON DIOXIDE,CO2 20.9 mmol/L (21.0-32.0); CHLORIDE,CL 107 mmol/L (98-107); GLUCOSE RANDOM 87 mg/dL (74-106); POTASSIUM,K 3.7 mmol/L (3.5-5.1); SODIUM,NA 140 mmol/L (136-145)
[2019-03-20 09:39] VITALS: BP 175/77; PULSE 74
== END 2019-03-20 09:40 | disposition home or self-care (01) ==
LOC: MW.ED 08:18
DX: R04.0 Epistaxis (principal); I10 Essential (primary) hypertension; G30.9 Alzheimer's disease, unspecified; F02.80 Dementia in other diseases classified elsewhere, unspecified severity, without behavioral disturbance, psychotic disturbance, mood disturbance, and anxiety; Z79.899 Other long term (current) drug therapy
CPT/HCPCS: 36415; 80053; 85025; 85610; 85730; 99282; 99283

== ENCOUNTER 2019-12-03 17:29 | Emergency (ER) | payer MEDICAID ==
[2019-12-03 17:38] VITALS: BP 147/72; PULSE 88
--- NOTE | 2019-12-03 17:42 | EDM.PDOC ---
ED HPI GENERAL MEDICAL PROBLEM - General Chief Complaint: Abdominal Pain Stated Complaint: CHRONIC STOMACH PAIN Time Seen by Provider: 12/03/19 17:31 Source of Information: Reports: Patient History Limitations: Reports: No Limitations - History of Present Illness INITIAL COMMENTS - FREE TEXT/NARRATIVE: HISTORY AND PHYSICAL: History of present illness: Patient is a 69-year-old female who presents to the emergency room with complaints of generalized abdominal pain, nausea, diarrhea, decreased appetite and weight loss. Patient is accompanied by her daughter due to being her c aregiver and patient having dementia. Patient states over the past 3 to 4 weeks she has had generalized upper abdominal pain. Daughter states that as soon as she will eat breakfast or early lunch she starts to develop this discomfort and shortly after will "goes straight through her". Has several episodes of diarrhea shortly after eating. Daughter believes the patient has lost weight based off her appearance, has not physically weighed her. Patient denies any fever, chills, headache, change in vision, syncope or near syncope. Denies any chest pain, back pain, shortness of breath or cough. Denies any vomiting, constipation or dysuria. Has not noted any alla blood in urine or stool, states she has noticed that her stools have been darker in color. Patient has been eating and drinking less than usual, daughter states she is unsure if this is due to the frequent diarrhea and abdominal pain it is causing. Denies any alcohol abuse. PCP: Dr Houston for her HTN, dementia and Alzheimers Review of systems: As per history of present illness and below otherwise all systems reviewed and negative. Past medical history: As per history of present illness and as reviewed below otherwise noncontributory. Surgical history: As per history of present illness and as reviewed below otherwise noncontributory. Social history: See social history for further information Family history: As per history of present illness and as reviewed below otherwise noncontributory. Physical exam: General: Well-developed and well-nourished 59-year-old female. Alert and oriented. Nontoxic-appearing and in no acute distress. Patient is accompanied by daughter who also translate as she is primarily Maldivian-speaking. HEENT: Atraumatic, normocephalic, pupils equal and reactive bilaterally, negat felipe for conjunctival pallor or scleral icterus, mucous membranes moist, TMs normal bilaterally, throat clear, neck supple, nontender, trachea midline. No drooling or trismus noted. No meningeal signs. No hot potato voice noted. Lungs: Clear to auscultation, breath sounds equal bilaterally, chest nontender. Heart: S1S2, regular rate and rhythm without overt murmur Abdomen: Soft, nondistended, left upper quadrant and right upper quadrant tenderness. Negative for masses or hepatosplenomegaly. Negative for costovertebral tenderness. Rectal: This was done with consent and a faculty criminal justice and daughter at bedside. Patient has good rectal tone. Hemoccult negative. No external or internal hemorrhoids are noted. Patient tolerated fair. Skin: Intact, warm, dry. No lesions or rashes noted. Hematologic: No petechiae or purpra. Mucosa appropriate color and normal nail bed color and refill. Extremities: Atraumatic, moves all extremities per self without difficulty or deficits, negative for cords or calf pain. Neurovascular unremarkable. Neuro: Awake, alert, oriented. Cranial nerves II through XII unremarkable. Cerebellum unremarkable. Motor and sensory unremarkable throughout. Exam nonfocal. Notes: Patient was able to have a stool while here, this was formed. Sample was sent to lab. CT shows slight increase in stool throughout the colon. Nothing acute is appreciated. Lab work is unremarkable. Patient was unable to give a urine sample and states she does not want to wait for results on these. She would like to be discharged home. I did discuss the diagnostics that we have at this time with both the patient and the daughter who is at the bedside, they state they will follow-up with Dr. Houston next week. We discussed possibly following up with a GI specialist or general surgeon and if she continues to have the pain and discomfort. Signs and symptoms that would prompt him to return to the emergency room were reviewed and discussed. Supportive care measures were reviewed and discussed. Voices understanding and is agreeable to plan of care. Denies any further questions or concerns at this time. Diagnostics: CBC, CMP, UA, stool studies, lipase, EKG, CT abdomen and pelvis, Hemoccult stool Therapeutics: IV fluid at 150m/h, Pepcid Prescription: Bentyl Impression: IBS Plan: 1. Lifestyle changes such as dietary change and decreasing stress. Some possible foods that can cause bowel irritation such as caffeine, lactose or fructose should be avoided. 2. You can use antidiarrheals occasionally such as Imodium. Long-term use of these types of medication should be avoided so if you feel you are using this on a daily basis you should consult with the GI specialist as we have discussed. 3. Bentyl can be taken 4 times daily for cramping and abdominal pain. 4. Today's lab work and CT scan showed no acute findings. I would like you to follow-up with a general surgeon or GI specialist for further evaluation and management of Alesha's symptoms. If your symptoms should worsen, new symptoms develop or any of the signs and symptoms we discussed should arise please return to the emergency room or call 911 (if needed). Definitive disposition and diagnosis as appropriate pending reevaluation and review of above. Lower Abdomen Pain Score (Numeric/FACES): 6 - Related Data Allergies Allergy/AdvReac Type Severity Reaction Status Date / Time No Known Allergies Allergy Verified 12/03/19 17:40 Home Meds: Home Meds Donepezil [Aricept] 5 mg PO BEDTIME 04/23/15 [History] Losartan Potassium 50 mg PO DAILY 03/17/19 [History] Megestrol Acetate 20 mg PO DAILY 03/17/19 [History] Memantine [Namenda] 10 mg PO DAILY 03/17/19 [History] Dicyclomine [Bentyl] 10 mg PO QID PRN #40 cap 12/03/19 [Rx] Past Medical History HEENT History: Reports: None Cardiovascular History: Reports: Hypertension Respiratory History: Reports: None Gastrointestinal History: Reports: None Genitourinary History: Reports: None FAMILY HELPER History: Reports: Musculoskeletal History: Reports: None Neurological History: Reports: Alzheimers Disease Psychiatric History: Reports: Alzheimers Disease Endocrine/Metabolic History: Reports: None Hematologic History: Reports: None Immunologic History: Reports: None Oncologic (Cancer) History: Reports: None Dermatologic History: Reports: None - Infectious Disease History Infectious Disease History: Reports: Chicken Pox, Measles, Meningitis, Mumps, Rubella - Past Surgical History Head Surgeries/Procedures: Reports: None HEENT Surgical History: Reports: None Cardiovascular Surgical History: Reports: None Respiratory Surgical History: Reports: None GI Surgical History: Reports: None Female Surgical History: Reports: Oophorectomy Endocrine Surgical History: Reports: None Musculoskeletal Surgical History: Reports: None Social & Family History - Family History Family Medical History: Noncontributory Cardiac: Reports: Hypertension - Caffeine Use Caffeine Use: Reports: Coffee ED ROS GENERAL - Review of Systems Review Of Systems: Comprehensive ROS is negative, except as noted in HPI. ED EXAM, GI/ABD - Physical Exam Exam: See Below (See dictation) Course - Vital Signs Last Recorded V/S: Last Vital Signs Temp 96.8 F L 12/03/19 17:36 Pulse 88 12/03/19 17:36 Resp 20 12/03/19 17:36 BP 147/72 H 12/03/19 17:36 Pulse Ox 98 12/03/19 17:36 - Orders/Labs/Meds Orders: Active Orders 24 hr Category Date Time Status EKG Documentation Completion [RC] STAT Care 12/03/19 18:03 Active CAMPYLOBACTER CULT [MREF] Stat Lab 12/03/19 18:29 Received OVA & PARASITES BY IMMUNOASSAY [MREF] Stat Lab 12/03/19 18:29 Received STOOL CULTURE/SHIGA TOXIN [MREF] Stat Lab 12/03/19 18:29 Received UA RFX RADU AND CULT IF INDIC [URIN] Stat Lab 12/03/19 17:56 Ordered Sodium Chloride 0.9% [Normal Saline] 1,000 ml Med 12/03/19 17:56 Active IV STAT Medication Orders Sodium Chloride (Normal Saline) 1,000 mls @ 150 mls/hr IV STAT ONE Stop: 12/04/19 00:35 Last Admin: 12/03/19 18:13 Dose: 150 mls/hr Documented by: ESTELLA Labs: Laboratory Tests 12/03/19 12/03/19 Range/Units 17:58 17:58 WBC 8.95 (4.0-11.0) K/uL RBC 4.18 L (4.30-5.90) M/uL Hgb 13.4 (12.0-16.0) g/dL Hct 38.9 (36.0-46.0) % MCV 93.1 (80.0-98.0) fL MCH 32.1 H (27.0-32.0) pg MCHC 34.4 (31.0-37.0) g/dL RDW Std Deviation 40.3 (28.0-62.0) fl RDW Coeff of Sb 12 (11.0-15.0) % Plt Count 227 (150-400) K/uL MPV 9.60 (7.40-12.00) fL Neut % (Auto) 65.1 (48.0-80.0) % Lymph % (Auto) 21.2 (16.0-40.0) % Freestone % (Auto) 9.2 (0.0-15.0) % Eos % (Auto) 4.1 (0.0-7.0) % Baso % (Auto) 0.4 (0.0-1.5) % Neut # (Auto) 5.8 H (1.4-5.7) K/uL Lymph # (Auto) 1.9 (0.6-2.4) K/uL [place] # (Auto) 0.8 (0.0-0.8) K/uL Eos # (Auto) 0.4 (0.0-0.7) K/uL Baso # (Auto) 0.0 (0.0-0.1) K/uL Sodium 140 (136-145) mmol/L Potassium 3.3 L (3.5-5.1) mmol/L Chloride 105 (98-107) mmol/L Carbon Dioxide 28.1 (21.0-32.0) mmol/L BUN 18 (7.0-18.0) mg/dL Creatinine 0.9 (0.6-1.0) mg/dL Est Cr Clr Drug Dosing 47.43 mL/min Estimated GFR (MDRD) > 60.0 ml/min Glucose 162 H (74-106) mg/dL Calcium 8.2 L (8.5-10.1) mg/dL Total Bilirubin 0.7 (0.2-1.0) mg/dL AST 19 (15-37) IU/L ALT 23 (14-63) IU/L Alkaline Phosphatase 111 (46-116) U/L Total Protein 7.4 (6.4-8.2) g/dL Albumin 3.6 (3.4-5.0) g/dL Globulin 3.8 (2.6-4.0) g/dL Albumin/Globulin Ratio 0.9 (0.9-1.6) Lipase 75 (73-393) U/L Meds: Medications Generic Name Dose Route Start Last Admin Trade Name Freq PRN Reason Stop Dose Admin Sodium Chloride 1,000 mls @ 150 mls/hr 12/03/19 17:56 12/03/19 18:13 Normal Saline IV 12/04/19 00:35 150 mls/hr STAT ONE Administration Discontinued Medications Generic Name Dose Route Start Last Admin Trade Name Freq PRN Reason Stop Dose Admin Dicyclomine HCl 10 mg 12/03/19 19:19 Bentyl PO 12/03/19 19:20 ONETIME ONE Famotidine 20 mg 12/03/19 18:03 12/03/19 18:13 Pepcid IVPUSH 12/03/19 18:04 20 mg ONETIME ONE Administration Iopamidol 66 ml 12/03/19 18:53 12/03/19 18:53 Isovue-370 (76%) IVPUSH 12/03/19 18:54 66 ml ONETIME ONE Administration Departure - Departure Time of Disposition: 19:18 Disposition: Home, Self-Care 01 Clinical Impression: IBS (irritable bowel syndrome) Qualifiers: Irritable bowel syndrome type: with diarrhea Qualified Code(s): K58.0 - Irritable bowel syndrome with diarrhea - Discharge Information Prescriptions: Dicyclomine [Bentyl] 10 mg PO QID PRN #40 cap PRN Reason: Cramping Instructions: Irritable Bowel Syndrome, Adult Referrals: Tiffanie Houston MD [Primary Care Provider] - Forms: ED Department Discharge Additional Instructions: The following information is given to patients seen in the emergency department who are being discharged to home. This information is to outline your options for follow-up care. We provide all patients seen in our emergency department with a follow-up referral. The need for follow-up, as well as the timing and circumstances, are variable depending upon the specifics of your emergency department visit. If you don't have a primary care physician on staff, we will provide you with a referral. We always advise you to contact your personal physician following an emergency department visit to inform them of the circumstance of the visit and for follow-up with them and/or the need for any referrals to a consulting specialist. The emergency department will also refer you to a specialist when appropriate. This referral assures that you have the opportunity for follow-up care with a specialist. All of these measure are taken in an effort to provide you with optimal care, which includes your follow-up. Under all circumstances we always encourage you to contact your private physician who remains a resource for coordinating your care. When calling for follow-up care, please make the office aware that this follow-up is from your recent emergency room visit. If for any reason you are refused follow-up, please contact the [facility] Emergency Department at and asked to speak to the emergency department charge nurse. [facility] [address] [place] [address] [facility] [address] [place] [id number] Thank you for choosing the [facility] emergency department in [place] for your medical needs today. It was a pleasure caring for you. Today you were seen in the emergency department for abdominal pain and frequent diarrhea. 1. Lifestyle changes such as dietary change and decreasing stress. Some possible foods that can cause bowel irritation such as caffeine, lactose or fructose should be avoided. 2. You can use antidiarrheals occasionally such as Imodium. Long-term use of these types of medication should be avoided so if you feel you are using this on a daily basis you should consult with the GI specialist as we have discussed. 3. Bentyl can be taken 4 times daily for cramping and abdominal pain. 4. Today's lab work and CT scan showed no acute findings. I would like you to follow-up with a general surgeon or GI specialist for further evaluation and management of Alesha's symptoms. If your symptoms should worsen, new symptoms dev elop or any of the signs and symptoms we discussed should arise please return to the emergency room or call 911 (if needed). Sepsis Event Note (ED) - Evaluation Sepsis Screening Result: No Definite Risk - Focused Exam Vital Signs: Vital Signs Temp Pulse Resp BP Pulse Ox 12/03/19 17:36 96.8 F L 88 20 147/72 H 98 - My Orders Last 24 Hours: My Active Orders 12/03/19 17:56 UA RFX RADU AND CULT IF INDIC [URIN] Stat Sodium Chloride 0.9% [Normal Saline] 1,000 ml IV STAT 12/03/19 18:03 EKG Documentation Completion [RC] STAT 12/03/19 18:29 CAMPYLOBACTER CULT [MREF] Stat OVA & PARASITES BY IMMUNOASSAY [MREF] Stat STOOL CULTURE/SHIGA TOXIN [MREF] Stat - Assessment/Plan Last 24 Hours: My Active Orders 12/03/19 17:56 UA RFX RADU AND CULT IF INDIC [URIN] Stat Sodium Chloride 0.9% [Normal Saline] 1,000 ml IV STAT 12/03/19 18:03 EKG Documentation Completion [RC] STAT 12/03/19 18:29 CAMPYLOBACTER CULT [MREF] Stat OVA & PARASITES BY IMMUNOASSAY [MREF] Stat STOOL CULTURE/SHIGA TOXIN [MREF] Stat
[2019-12-03] MEDS ORDERED: Sodium Chloride 0.9% 1,000 ML IV ONE (17:56)
[2019-12-03] MEDS ORDERED: Famotidine 20 MG/2 ML SDV IVPUSH ONE (18:03)
[2019-12-03 18:27] LABS: BLOOD UREA NITROGEN,BUN 18 mg/dL (7.0-18.0); CARBON DIOXIDE,CO2 28.1 mmol/L (21.0-32.0); CHLORIDE,CL 105 mmol/L (98-107); GLUCOSE RANDOM 162 mg/dL (74-106); LIPASE 75 U/L (73-393); POTASSIUM,K 3.3 mmol/L (3.5-5.1); SODIUM,NA 140 mmol/L (136-145)
[2019-12-03] MEDS ORDERED: Iopamidol 755 Mg/ML 100 ML Bottle IVPUSH ONE (18:53)
--- NOTE | 2019-12-03 19:05 | CT ---
CT abdomen and pelvis Technique: Multiple axial sections were obtained from above the dome of the diaphragm inferiorly through the pubic symphysis. Intravenous contrast was utilized. No oral contrast has been given. Comparison: No prior abdominal imaging is available. Findings: Visualized lung bases shows slight atelectasis. Liver contains no focal parenchymal abnormality. Spleen appears within normal limits. Adrenal glands show no nodule. Kidneys show symmetric contrast enhancement without hydronephrosis or mass. Pancreas is somewhat atrophied without other abnormality being seen within the pancreas. Aorta shows atherosclerotic calcification which continues into the iliac vessels. No retroperitoneal adenopathy is seen. Gallbladder contains no calcified gallstones. No mesenteric abnormalities are seen. No pelvic mass or adenopathy is seen. No free fluid or inflammatory change is appreciated. Appendix is felt to be visualized and appears to be normal in size. Slight increased stool is seen throughout colon. Bone window settings were reviewed. Scoliosis is noted within the spine with mild scattered degenerative change. No acute osseous finding is appreciated. Impression: 1. Findings as noted above. Slight increased stool within the colon. 2. Nothing acute is appreciated on CT study of the abdomen and pelvis. Diagnostic code #2 Study was dictated in MDT
[2019-12-03] MEDS ORDERED: Dicyclomine 10 MG Cap PO ONE (19:19)
== END 2019-12-03 20:06 | disposition home or self-care (01) ==
LOC: MW.ED 17:29
DX: K58.0 Irritable bowel syndrome with diarrhea (principal); I10 Essential (primary) hypertension; G30.9 Alzheimer's disease, unspecified; F02.80 Dementia in other diseases classified elsewhere, unspecified severity, without behavioral disturbance, psychotic disturbance, mood disturbance, and anxiety; Z79.899 Other long term (current) drug therapy
CPT/HCPCS: 36415; 74177; 80053; 83690; 85025; 87045; 87046; 87328; 87329; 87449; 87899; 93005; 96361; 96374; 99284; A9270; J3490; J7030; Q9967

== ENCOUNTER 2020-04-09 07:29 | Day surgery (SDC) | payer MEDICAID ==
[~2020-04-09 07:29] MED LIST: Lactated Ringers 1,000 ML IV SCH; Midazolam 1 MG/ML 2 ML SDV ONE; Ondansetron 4 MG/2 ML SDV ONE; Propofol 200 MG/20 ML SDV ONE; Sodium Chloride 0.9% 10 ML SDV IV PRN; Sodium Chloride 0.9% 10 ML Syringe FLUSH PRN; Sodium Chloride 0.9% 2.5 ML Syringe FLUSH PRN; fentaNYL 100 MCG/2 ML SDV ONE
--- NOTE | 2020-04-09 08:11 | PCM.PREANE ---
Preanesthetic Assessment - Anesthesia/Transfusion/Family Hx Anesthesia History: Prior Anesthesia Without Reaction Family History of Anesthesia Reaction: No Transfusion History: Prior Transfusion Reaction Intubation History: Unknown - Review of Systems General: Appetite Pulmonary: No Symptoms Cardiovascular: No Symptoms Gastrointestinal: Abdominal Pain, Other (h/o colon polyps) Neurological: No Symptoms Other: Reports: None - Physical Assessment Height: 4 ft 5 in Weight: 50.802 kg ASA Class: 3 Mental Status: Alert & Oriented x3 Airway Class: Mallampati = 2 Dentition: Reports: Normal Dentition Thyro-Mental Finger Breadths: 3 Mouth Opening Finger Breadths: 3 ROM/Head Extension: Full Lungs: Clear to Auscultation, Normal Respiratory Effort Cardiovascular: Regular Rate, Regular Rhythm - Allergies Allergies/Adverse Reactions: Allergies Allergy/AdvReac Type Severity Reaction Status Date / Time No Known Allergies Allergy Verified 04/03/20 08:53 - Blood Blood Available: No - Anesthesia Plan Pre-Op Medication Ordered: None - Acknowledgements Anesthesia Type Planned: MAC Pt an Appropriate Candidate for the Planned Anesthesia: Yes Alternatives and Risks of Anesthesia Discussed w Pt/Guardian: Yes Pt/Guardian Understands and Agrees with Anesthesia Plan: Yes PreAnesthesia Questionnaire HEENT History: Reports: None Cardiovascular History: Reports: Hypertension Respiratory History: Reports: None Gastrointestinal History: Reports: Colon Polyp (, colonoscopy done here), Inflammatory Bowel Disease Genitourinary History: Reports: None FHA UNDERWRITER History: Reports: Musculoskeletal History: Reports: None Neurological History: Reports: Alzheimers Disease Psychiatric History: Reports: Alzheimers Disease (started in , patient nonfunctional at present), Depression Endocrine/Metabolic History: Reports: None Hematologic History: Reports: None Immunologic History: Reports: None Oncologic (Cancer) History: Reports: None Dermatologic History: Reports: None - Infectious Disease History Infectious Disease History: Reports: None - Past Surgical History Head Surgeries/Procedures: Reports: None HEENT Surgical History: Reports: None Cardiovascular Surgical History: Reports: None Respiratory Surgical History: Reports: None GI Surgical History: Reports: Colonoscopy Female Surgical History: Reports: Tubal Ligation Endocrine Surgical History: Reports: None Musculoskeletal Surgical History: Reports: None - SUBSTANCE USE Tobacco Use Status *Q: Never Tobacco User - HOME MEDS Home Medications: Home Meds Losartan Potassium 50 mg PO DAILY 03/17/19 [History] Dicyclomine [Bentyl] 10 mg PO QID PRN #40 cap 12/03/19 [Rx] Pantoprazole Sodium [Protonix] 1 tab PO DAILY 04/03/20 [History] QUEtiapine Fumarate [Seroquel] 1 tab PO BEDTIME 04/03/20 [History] - CURRENT (IN HOUSE) MEDS Current Meds: Current Medications Lactated Ringer's (Ringers, Lactated) 1,000 mls @ 125 mls/hr IV ASDIRECTED JAIDA Sodium Chloride (Saline Flush) 10 ml FLUSH ASDIRECTED PRN PRN Reason: Keep Vein Open Sodium Chloride (Saline Flush) 2.5 ml FLUSH ASDIRECTED PRN PRN Reason: Keep Vein Open Sodium Chloride (Saline Flush) 10 ml FLUSH ASDIRECTED PRN PRN Reason: Keep Vein Open Sodium Chloride (Saline Flush) 2.5 ml FLUSH ASDIRECTED PRN PRN Reason: Keep Vein Open Sodium Chloride (Normal Saline) 10 ml IV ASDIRECTED PRN PRN Reason: IV Use Discontinued Medications Fentanyl (Sublimaze) Confirm Administered Dose 100 mcg .ROUTE .STK-MED ONE Stop: 04/09/20 07:21 Lidocaine HCl (Xylocaine-Mpf 1%) Confirm Administered Dose 5 ml .ROUTE .STK-MED ONE Stop: 04/09/20 07:21 Midazolam HCl (Versed 1 Mg/Ml) Confirm Administered Dose 2 mg .ROUTE .STK-MED ONE Stop: 04/09/20 07:21 Ondansetron HCl (Zofran) Confirm Administered Dose 4 mg .ROUTE .STK-MED ONE Stop: 04/09/20 07:21 Propofol (Diprivan 20 Ml) Confirm Administered Dose 200 mg .ROUTE .STK-MED ONE Stop: 04/09/20 07:21
--- NOTE | 2020-04-09 09:14 | PCM.OPNOTE ---
- General Post-Op/Procedure Note Date of Surgery/Procedure: 04/09/20 Operative Procedure(s): Diagnostic EGD and colonoscopy Findings: Chronic LLQ pain, post prandial pain Pre Op Diagnosis: Postprandial abdominal pain, LLQ pain Post-Op Diagnosis: Diverticulosis, hiatal hernia Anesthesia Technique: FLORINA Primary Surgeon: Serene Monsalve Condition: Good
--- NOTE | 2020-04-09 09:19 | PCM.POSTAN ---
POST ANESTHESIA ASSESSMENT - MENTAL STATUS Mental Status: Oriented, Disoriented, Other (Alzheimer dz.) - VITAL SIGNS Vital Signs: Last Vital Signs Temp 36.5 C 04/09/20 08:27 Pulse 63 04/09/20 09:10 Resp 22 H 04/09/20 09:10 BP 156/79 H 04/09/20 09:10 Pulse Ox 99 04/09/20 09:10 - RESPIRATORY Respiratory Status: Respiratory Rate WNL, Airway Patent, O2 Saturation Stable - CARDIOVASCULAR CV Status: Pulse Rate WNL, Blood Pressure Stable - GASTROINTESTINAL GI Status: No Symptoms - PAIN Pain Score: 0 - POST OP HYDRATION Hydration Status: Adequate & Stable - OBSERVATIONS Free Text/Narrative:: No anesthesia problems
--- NOTE | 2020-04-09 09:43 | PCM48HPAN ---
Post Anesthesia Note - EVALUATION WITHIN 48HRS OF ANESTHETIC Vital Signs in Normal Range: Yes Patient Participated in Evaluation: Yes Respiratory Function Stable: Yes Airway Patent: Yes Cardiovascular Function Stable: Yes Hydration Status Stable: Yes Pain Control Satisfactory: Yes Nausea and Vomiting Control Satisfactory: Yes Mental Status Recovered: Yes Vital Signs: Last Vital Signs Temp 36.5 C 04/09/20 08:27 Pulse 63 04/09/20 09:10 Resp 22 H 04/09/20 09:10 BP 156/79 H 04/09/20 09:10 Pulse Ox 99 04/09/20 09:10 - COMMENTS/OBSERVATIONS Free Text/Narrative:: No anesthesia problems
[2020-04-09 12:16] VITALS: BP 176/84; PULSE 68
--- NOTE | 2020-04-09 17:15 | OR ---
SURGEON: SERENE MONSALVE MD DATE OF PROCEDURE: 04/09/2020 PREOPERATIVE DIAGNOSES: Postprandial abdominal pain, chronic left lower quadrant pain. POSTOPERATIVE DIAGNOSES: 1. Hiatal hernia. 2. Diverticulosis. PROCEDURE PERFORMED: Diagnostic esophagogastroduodenoscopy and colonoscopy. PRIMARY SURGEON: Endoscopist: Dr. Serene Monsalve. ANESTHESIA: MAC. INSTRUMENT USED: Olympus endoscope and colonoscope. EXTENT OF EXAM: To the 2nd portion of the duodenum, to the cecum. PREPARATION: Good. LIMITATIONS: None. INDICATIONS FOR EXAMINATION: The patient is a 70-year-old female with dementia who lives with her daughter. The daughter has noted that she will have postprandial abdominal pain. She has also noted some chronic left lower quadrant pain. A recent CT scan showed constipation, but no other acute issues. The decision was made to proceed with a diagnostic EGD and colonoscopy. I explained the procedures, expected perioperative course, and the risks. She verbalized understanding and wished to proceed. PROCEDURE IN DETAIL: The patient was brought into the endoscopy suite and placed in the left lateral decubitus position. A time-out was completed verifying the patient's name, age, date of , allergies, and procedure to be performed. Monitored anesthesia care was induced and a bite- block was placed in the patient's mouth. Continuous oxygen was provided via nasal cannula throughout the procedure. After adequate sedation was achieved, a well-lubricated endoscope was placed in the patient's mouth and advanced under direct visualization to the level of the 2nd portion of the duodenum. This appeared normal and a photograph was taken. The scope was then fully withdrawn while examining the color, texture, anatomy, and integrity of the mucosa of the upper GI tract. The duodenum appeared normal. The scope was brought into the stomach and a photograph was taken of the pylorus and GE junction. The patient was noted to have a small hiatal hernia. Biopsies were taken of the gastric antrum, body, and fundus and sent for histologic review and H. pylori testing. There was no evidence of gross ulceration or inflammation. The scope was then brought into the distal esophagus and a photograph was taken of the Z-line. The distal esophageal mucosa showed no signs of esophagitis, but a biopsy was taken 1 cm above the Z- line and sent to pathology labeled as esophagus. The distal esophagus was mildly tortuous, likely due to the small hiatal hernia. Otherwise, the remainder of the esophagus was normal. The scope was removed and this portion of procedure terminated. A digital rectal exam was performed. This exam was within normal limits. A well-lubricated colonoscope was inserted in the rectum and advanced under direct visualization to the level of the cecum. The cecum was identified by both visual and anatomic landmarks. A photograph was taken of the cecal cap as well as with the scope retroflexed within the cecum. The scope was then fully withdrawn while examining the color, texture, anatomy, and integrity of the mucosa from the cecum to the anal canal. The patient was noted to have diverticulosis within the sigmoid colon. Otherwise, the remainder of the exam was normal. The scope was then brought into the rectum and retroflexed to allow visualization of the anal canal opening. This appeared normal and a photograph was taken. The scope was straightened out and fully withdrawn. The cecum to anus time was 7 minutes. The patient tolerated the procedure well and transferred to the PACU in stable condition. ENDOSCOPIC DIAGNOSES: 1. Hiatal hernia. 2. Diverticulosis. RECOMMENDATIONS: I will follow up on the results of the patient's biopsy. I will then call her daughter to discuss any further steps in treatment and the biopsy results. SARIKA GALDAMEZ /[id number]
== END 2020-04-09 09:47 | disposition home or self-care (01) ==
LOC: MW.SDS 07:29
PROVIDERS: ATTEND Surgery
DX: K57.30 Diverticulosis of large intestine without perforation or abscess without bleeding (principal); K58.9 Irritable bowel syndrome, unspecified; K44.9 Diaphragmatic hernia without obstruction or gangrene; G30.9 Alzheimer's disease, unspecified; F32.9 Major depressive disorder, single episode, unspecified; I10 Essential (primary) hypertension; G47.00 Insomnia, unspecified; Z79.899 Other long term (current) drug therapy; Z98.890 Other specified postprocedural states; Z86.010 Personal history of colon polyps
CPT/HCPCS: 43239; 45378; J2001; J2250; J2405; J2704; J3010; J7120; 00813

== ENCOUNTER 2020-07-04 13:02 | Emergency (ER) | payer MEDICAID ==
--- NOTE | 2020-07-04 13:13 | EDM.PDOC ---
ED HPI GENERAL MEDICAL PROBLEM - General Chief Complaint: General Stated Complaint: WEAKNESS Time Seen by Provider: 07/04/20 13:04 Source of Information: Reports: Family History Limitations: Reports: Altered Mental Status - History of Present Illness INITIAL COMMENTS - FREE TEXT/NARRATIVE: HISTORY AND PHYSICAL: History of present illness: 70-year-old female presents to the ER with complaints of fatigue for the last 4 days. Her daughter reports that she has been sleeping and taking frequent naps, which is unusual for her. The daughter reports the patient becomes fatigued with ambulation but patient denies feeling shortness of breath. The patient has decreased appetite and decreased fluid intake. The patient has had an infrequent cough, raspy voice, and nasal congestion. She denies fever, nausea, and vomiting. The daughter reports the patient has complained of a infrequent dull headache over the last several days. Patient has been able to do her morning routine and take a shower. The daughter's main concern is the patient's fatigue and taking frequent naps. The daughter reports that she has had a known exposure of COVID-19 about 7 days ago. Patient denies any change in vision, syncope or near syncope. Denies any chest pain, back pain. Denies any abdominal pain, diarrhea, constipation or dysuria. Has not noted any blood in urine or stool. Patient is German speaking. Daughter is at the bedside for translation. We offered translation services. Patent has past medical history of HTN, abdominal pain, UTI, IBS, and hallucinations. Review of systems: As per history of present illness and below otherwise all systems reviewed and negative. Past medical history: As per history of present illness and as reviewed below otherwise noncontributory. Surgical history: As per history of present illness and as reviewed below otherwise noncontributory. Social history: See social history for further information Family history: As per history of present illness and as reviewed below otherwise noncontributory. Physical exam: General: Well developed and well nourished. Alert and recognizes self and daughter. She has a diagnosis of Alzheimer's and gets frustrated when giving information. Nontoxic in appearance and in no acute distress. Vital signs are stable and have been reviewed by me. Nursing notes were reviewed. HEENT: Atraumatic, normocephalic, pupils equal and reactive bilaterally, negative for conjunctival pallor or scleral icterus, dry/tacky membranes moist, throat clear, neck supple, nontender, trachea midline. No drooling or trismus noted. No meningeal signs. No hot potato voice noted. Lungs: Clear to auscultation bilaterally. No wheezes, rales, or rhonchi. Chest nontender. Normal work of breathing, no accessory muscles used. Heart: S1S2, regular rate and rhythm without overt murmur, gallops, or rubs. No JVD. No peripheral edema Abdomen: Soft, nondistended, mild right upper quadrant tenderness. Normoactive bowel sounds. Skin: Intact, warm, dry. No lesions or rashes noted. Hematologic: No petechiae or purpra. Mucosa appropriate color and normal nail bed color and refill. Extremities: Atraumatic, moves all extremities per self without difficulty or deficits, negative for cords or calf pain. Neurovascular unremarkable. Neuro: Awake, alert, recognizes self and daughter. She has a diagnosis of Alzheimer's and gets frustrated when giving information. Cranial nerves II through XII unremarkable. Cerebellum unremarkable. Motor and sensory unremarkable throughout. Exam nonfocal. Psychiatric: Mood - patient is easily frustrated with answering questions and treatment. Normal thought process. Answering questions appropriately. Notes: *This patient was seen and evaluated during the 2019 SARS-CoV-2 novel co ronavirus pandemic period. Community viral transmission is ongoing at time of this encounter and the emergency department is operating under pandemic response procedures. The daughter is mostly concerned about COVID, weakness, and fatigue.The daughter is agreeable to labs, chest x-ray, EKG, and fluids. Notified per nursing staff of critical Troponin 0.059 at 13:59. I will repeat the Troponin at 17:00. The family was informed of this and confirmed the patient has not had any chest pain. She is agreeable to the repeat troponin and are aware of the delayed transfer or admission. CXR impression: Airspace opacity at the right base and possibly laterally in the left mid lung. This is probably inflammatory. Atypical viral pneumonia should be considered if clinically appropriate. The patient is positive for COVID-19. The daughter was given a note for work to quarantine, until released by the [facility] health department due to direct exposure of + COVID-19. The daughter stated that she would like to get tested and will go to the State testing center. Second troponin is elevated. I have called and spoke with Dr Valle at [facility] in [place]. He is agreeable to taking this patient for further care and management. I have talked with the patient/caregiver about today's findings, in addition to providing specific details for plan of care. Reassessment at the time of disposition she is dressed in her winter coat and has her hat on. The daughter states she would like to be discharged to home and "feels better". I told them the severity of patients situation, although she looks stable, she should see a caddy. Daughter states she needs to call some family members to get their opinion. Patient/daughter is agreeable to transfer to [facility] in [place]. Patient remains pain free. VSS. [facility] will be here in 30 minutes. Diagnostics: CBC,CMP, Troponin, UA, COVID/Influenza, CXR, EKG Therapeutics: IV fluids, ASA, Rocephin Impression: COVID-19 UTI ACS Plan: Transferred to [facility] in [place] via ground EMS Definitive disposition and diagnosis as appropriate pending reevaluation and review of above. Duration: Day(s): - Related Data Allergies Allergy/AdvReac Type Severity Reaction Status Date / Time No Known Allergies Allergy Verified 07/04/20 13:19 Home Meds: Home Meds Losartan Potassium 50 mg PO DAILY 03/17/19 [History] Dicyclomine [Bentyl] 10 mg PO QID PRN #40 cap 12/03/19 [Rx] Pantoprazole Sodium [Protonix] 1 tab PO DAILY 04/03/20 [History] QUEtiapine Fumarate [Seroquel] 1 tab PO BEDTIME 04/03/20 [History] FLUoxetine [PROzac] 07/04/20 [History] Megestrol [Megace] 07/04/20 [History] Past Medical History HEENT History: Reports: None Cardiovascular History: Reports: Hypertension Respiratory History: Reports: None Gastrointestinal History: Reports: Colon Polyp, Inflammatory Bowel Disease Genitourinary History: Reports: None [employer] History: Reports: Musculoskeletal History: Reports: None Neurological History: Reports: Alzheimers Disease Psychiatric History: Reports: Alzheimers Disease, Depression Endocrine/Metabolic History: Reports: None Hematologic History: Reports: None Immunologic History: Reports: None Oncologic (Cancer) History: Reports: None Dermatologic History: Reports: None - Infectious Disease History Infectious Disease History: Reports: None - Past Surgical History Head Surgeries/Procedures: Reports: None HEENT Surgical History: Reports: None Cardiovascular Surgical History: Reports: None Respiratory Surgical History: Reports: None GI Surgical History: Reports: Colonoscopy Female Surgical History: Reports: Tubal Ligation Endocrine Surgical History: Reports: None Musculoskeletal Surgical History: Reports: None Social & Family History - Family History Family Medical History: No Pertinent Family History Cardiac: Reports: Hypertension - Caffeine Use Caffeine Use: Reports: Coffee ED ROS GENERAL - Review of Systems Review Of Systems: Comprehensive ROS is negative, except as noted in HPI. ED EXAM, GENERAL - Physical Exam Exam: See Below (see dictation) Course - Vital Signs Last Recorded V/S: Last Vital Signs Temp 99.6 F 07/04/20 13:14 Pulse 71 07/04/20 16:38 Resp 16 07/04/20 16:38 BP 150/76 H 07/04/20 16:38 Pulse Ox 96 07/04/20 16:38 - Orders/Labs/Meds Orders: Active Orders 24 hr Category Date Time Status EKG Documentation Completion [RC] STAT Care 07/04/20 13:19 Active CULTURE URINE [RM] Stat Lab 07/04/20 15:52 Received Labs: Laboratory Tests 07/04/20 07/04/20 07/04/20 Range/Units 13:25 13:25 13:34 WBC 4.80 (4.0-11.0) K/uL RBC 4.20 L (4.30-5.90) M/uL Hgb 13.2 (12.0-16.0) g/dL Hct 38.5 (36.0-46.0) % MCV 91.7 (80.0-98.0) fL MCH 31.4 (27.0-32.0) pg MCHC 34.3 (31.0-37.0) g/dL RDW Std Deviation 42.3 (28.0-62.0) fl RDW Coeff of Sb 13 (11.0-15.0) % Plt Count 172 (150-400) K/uL MPV 10.00 (7.40-12.00) fL Neut % (Auto) 62.7 (48.0-80.0) % Lymph % (Auto) 24.2 (16.0-40.0) % [place] % (Auto) 12.3 (0.0-15.0) % Eos % (Auto) 0.6 (0.0-7.0) % Baso % (Auto) 0.2 (0.0-1.5) % Neut # (Auto) 3.0 (1.4-5.7) K/uL Lymph # (Auto) 1.2 (0.6-2.4) K/uL [place] # (Auto) 0.6 (0.0-0.8) K/uL Eos # (Auto) 0.0 (0.0-0.7) K/uL Baso # (Auto) 0.0 (0.0-0.1) K/uL Nucleated RBC % 0.0 /100WBC Nucleated RBCs # 0 K/uL Sodium 135 L (136-145) mmol/L Potassium 3.3 L (3.5-5.1) mmol/L Chloride 101 (98-107) mmol/L Carbon Dioxide 25.9 (21.0-32.0) mmol/L BUN 16 (7.0-18.0) mg/dL Creatinine 0.9 (0.6-1.0) mg/dL Est Cr Clr Drug Dosing 40.58 mL/min Estimated GFR (MDRD) > 60.0 ml/min Glucose 130 H (74-106) mg/dL Calcium 8.5 (8.5-10.1) mg/dL Total Bilirubin 0.6 (0.2-1.0) mg/dL AST 22 (15-37) IU/L ALT 22 (14-63) IU/L Alkaline Phosphatase 102 (46-116) U/L Troponin I 0.059 H* (0.000-0.056) ng/mL Total Protein 7.1 (6.4-8.2) g/dL Albumin 3.2 L (3.4-5.0) g/dL Globulin 3.9 (2.6-4.0) g/dL Albumin/Globulin Ratio 0.8 L (0.9-1.6) Urine Color Urine Appearance Urine pH (5.0-8.0) Ur Specific [place] (1.001-1.035) Urine Protein (NEGATIVE) mg/dL Urine Glucose (UA) (NEGATIVE) mg/dL Urine Ketones (NEGATIVE) mg/dL Urine Occult Blood (NEGATIVE) Urine Nitrite (NEGATIVE) Urine Bilirubin (NEGATIVE) Urine Urobilinogen (<2.0) EU/dL Ur Leukocyte Esterase (NEGATIVE) Urine RBC (0-2/HPF) Urine WBC (0-5/HPF) Ur Epithelial Cells (NONE-FEW) Urine Bacteria (NEGATIVE) Influenza Type A RNA NEGATIVE (NEGATIVE) Influenza Type B RNA NEGATIVE (NEGATIVE) SARS-CoV-2 RNA (LU) POSITIVE H (NEGATIVE) 07/04/20 07/04/20 Range/Units 15:52 17:03 WBC (4.0-11.0) K/uL RBC (4.30-5.90) M/uL Hgb (12.0-16.0) g/dL Hct (36.0-46.0) % MCV (80.0-98.0) fL MCH (27.0-32.0) pg MCHC (31.0-37.0) g/dL RDW Std Deviation (28.0-62.0) fl RDW Coeff of Sb (11.0-15.0) % Plt Count (150-400) K/uL MPV (7.40-12.00) fL Neut % (Auto) (48.0-80.0) % Lymph % (Auto) (16.0-40.0) % [place] % (Auto) (0.0-15.0) % Eos % (Auto) (0.0-7.0) % Baso % (Auto) (0.0-1.5) % Neut # (Auto) (1.4-5.7) K/uL Lymph # (Auto) (0.6-2.4) K/uL [place] # (Auto) (0.0-0.8) K/uL Eos # (Auto) (0.0-0.7) K/uL Baso # (Auto) (0.0-0.1) K/uL Nucleated RBC % /100WBC Nucleated RBCs # K/uL Sodium (136-145) mmol/L Potassium (3.5-5.1) mmol/L Chloride (98-107) mmol/L Carbon Dioxide (21.0-32.0) mmol/L BUN (7.0-18.0) mg/dL Creatinine (0.6-1.0) mg/dL Est Cr Clr Drug Dosing mL/min Estimated GFR (MDRD) ml/min Glucose (74-106) mg/dL Calcium (8.5-10.1) mg/dL Total Bilirubin (0.2-1.0) mg/dL AST (15-37) IU/L ALT (14-63) IU/L Alkaline Phosphatase (46-116) U/L Troponin I 0.065 H* (0.000-0.056) ng/mL Total Protein (6.4-8.2) g/dL Albumin (3.4-5.0) g/dL Globulin (2.6-4.0) g/dL Albumin/Globulin Ratio (0.9-1.6) Urine Color YELLOW Urine Appearance SLT CLOUDY Urine pH 6.0 (5.0-8.0) Ur Specific [place] 1.015 (1.001-1.035) Urine Protein NEGATIVE (NEGATIVE) mg/dL Urine Glucose (UA) NEGATIVE (NEGATIVE) mg/dL Urine Ketones NEGATIVE (NEGATIVE) mg/dL Urine Occult Blood NEGATIVE (NEGATIVE) Urine Nitrite NEGATIVE (NEGATIVE) Urine Bilirubin NEGATIVE (NEGATIVE) Urine Urobilinogen 0.2 (<2.0) EU/dL Ur Leukocyte Esterase TRACE H (NEGATIVE) Urine RBC 0-3 (0-2/HPF) Urine WBC 2-5 (0-5/HPF) Ur Epithelial Cells MANY (NONE-FEW) Urine Bacteria 2+ H (NEGATIVE) Influenza Type A RNA (NEGATIVE) Influenza Type B RNA (NEGATIVE) SARS-CoV-2 RNA (LU) (NEGATIVE) Departure - Departure Time of Disposition: 18:31 Disposition: DC/Tfer to [facility] 02 Clinical Impression: UTI, Urinary tract infectious disease, COVID-19, Acute coronary syndrome - Discharge Information Referrals: Tiffanie Houston MD [Primary Care Provider] - Forms: ED Department Discharge Sepsis Event Note (ED) - Focused Exam Vital Signs: Vital Signs Temp Pulse Resp BP Pulse Ox 07/04/20 16:38 71 16 150/76 H 96 07/04/20 13:14 99.6 F 85 18 137/71 98 - My Orders Last 24 Hours: My Active Orders 07/04/20 13:19 EKG Documentation Completion [RC] STAT 07/04/20 15:52 CULTURE URINE [RM] Stat - Assessment/Plan Last 24 Hours: My Active Orders 07/04/20 13:19 EKG Documentation Completion [RC] STAT 07/04/20 15:52 CULTURE URINE [RM] Stat
[2020-07-04] MEDS ORDERED: Sodium Chloride 0.9% 1,000 ML IV ONE (13:19)
--- NOTE | 2020-07-04 13:37 | PCM.SN.2 ---
- Free Text/Narrative Note: EG done at 1323 hrs. rhythm with a heart rate 79 NM 166 QT 422 axis -[address] flattening in the lateral leads compared to 03/17/2019 no change impression no obvious injury
[2020-07-04 13:57] LABS: BLOOD UREA NITROGEN,BUN 16 mg/dL (7.0-18.0); CARBON DIOXIDE,CO2 25.9 mmol/L (21.0-32.0); CHLORIDE,CL 101 mmol/L (98-107); GLUCOSE RANDOM 130 mg/dL (74-106); POTASSIUM,K 3.3 mmol/L (3.5-5.1); SODIUM,NA 135 mmol/L (136-145)
--- NOTE | 2020-07-04 14:04 | CR ---
INDICATION: Weakness COMPARISON: 02/14/2019 TECHNIQUE: Single-view portable chest radiograph FINDINGS: TUBES AND LINES: None. HEART AND MEDIASTINUM: Enlarged heart. Tortuous aorta.. LUNGS AND PLEURAL SPACES: Patchy airspace opacity at the right base and possibly laterally in the left midlung. This is probably inflammatory.Consider the possibility of atypical pneumonia in the appropriate clinical setting.COVID is within the differential considerations. OSSEOUS STRUCTURES: Age-appropriate appearance. No acute focal finding. IMPRESSION: Airspace opacity at the right base and possibly laterally in the left mid lung. This is probably inflammatory. Atypical viral pneumonia should be considered if clinically appropriate Dictated by Jose Miguel Aguilar MD @ Jul 04 2020 2:00PM Signed by Dr. Jose Miguel Aguilar @ Jul 04 2020 2:02PM
[2020-07-04 14:13] LABS: CORONAVIRUS COVID-19 NAA POSITIVE (NEGATIVE); INFLUENZA A NAA NEGATIVE (NEGATIVE); INFLUENZA B NAA NEGATIVE (NEGATIVE)
[2020-07-04] MEDS ORDERED: Aspirin 81 MG Tab.Chew PO ONE (15:41)
[2020-07-04] MEDS ORDERED: cefTRIAXone 1 GM in Premix Bag 1 BAG IV ONE (18:30)
[2020-07-04 20:04] VITALS: BP 156/78; PULSE 74
== END 2020-07-04 19:36 ==
LOC: MW.ED 13:02
DX: U07.1 COVID-19 (principal); N39.0 Urinary tract infection, site not specified; I24.9 Acute ischemic heart disease, unspecified; I10 Essential (primary) hypertension; G30.9 Alzheimer's disease, unspecified; F02.80 Dementia in other diseases classified elsewhere, unspecified severity, without behavioral disturbance, psychotic disturbance, mood disturbance, and anxiety; Z79.899 Other long term (current) drug therapy
CPT/HCPCS: 0240U; 36415; 71045; 80053; 81001; 84484; 85025; 87086; 93005; 96365; 99285; A9270; J0696; J7030

== ENCOUNTER 2024-06-01 10:44 | Inpatient (IN) | payer MEDICAID ==
[2024-06-01] MEDS ORDERED: Sodium Chloride 0.9% 10 ML Syringe FLUSH PRN ×2 (10:49→17:00)
[2024-06-01] MEDS ORDERED: Sodium Chloride 0.9% 2.5 ML Syringe FLUSH PRN ×2 (10:49→17:00)
[2024-06-01 11:26] LABS: INR 1.05 (0.86-1.11)
[2024-06-01 11:36] LABS: BASOPHILS ABSOLUTE AUTO 0.07 K/uL (0.00-0.20); BASOPHILS PERCENT AUTO 0.7 % (0.0-1.0); EOSINOPHILS ABSOLUTE AUTO 0.46 K/uL (0.00-0.45); EOSINOPHILS PERCENT AUTO 4.7 % (0.0-6.0); HEMATOCRIT 40.1 % (37.0-47.0); HEMOGLOBIN 13.6 g/dL (12.0-16.0); IMMATURE GRAN ABSOLUTE AUTO 0.05 K/uL (0.00-0.05); IMMATURE GRAN PERCENT AUTO 0.5 % (0.0-0.4); LYMPHOCYTES ABSOLUTE AUTO 3.08 K/uL (1.00-4.80); LYMPHOCYTES PERCENT AUTO 31.1 % (24.0-44.0); MEAN CORPUSCULAR HEMOGLOBIN 31.6 pg (28.0-32.0); MEAN CORPUSCULAR HGB CONC 33.9 g/dL (32.0-36.0); MEAN PLATELET VOLUME 10.6 fL (9.4-12.3); MONOCYTES ABSOLUTE AUTO 0.87 K/uL (0.00-0.80); MONOCYTES PERCENT AUTO 8.8 % (0.0-8.0); NEUTROPHILS ABSOLUTE AUTO 5.36 K/uL (1.80-7.70); NEUTROPHILS PERCENT AUTO 54.2 % (41.0-71.0); PLATELET COUNT,PLT 187 K/uL (150-400); RED BLOOD CELL COUNT 4.31 M/uL (4.10-5.30); WHITE BLOOD CELL COUNT,WBC 9.89 K/uL (3.9-11.3)
[2024-06-01 12:16] LABS: A/G RATIO 0.8 (0.9-1.6); ALBUMIN 3.4 g/dL (3.4-5.0); BILIRUBIN TOTAL 0.5 mg/dL (0.2-1.0); CALCIUM 9.5 mg/dL (8.5-10.1); CARBON DIOXIDE,CO2 27.2 mmol/L (21.0-32.0); CREATININE 0.9 mg/dL (0.6-1.0); EST CRCL DRUG DOSING (CG) 49.78 mL/min; POTASSIUM,K 3.9 mmol/L (3.5-5.1); PROTEIN TOTAL,TP 7.7 g/dL (6.4-8.2)
[2024-06-01] MEDS: Heparin Sodium 5,000 Units/ML Vial IVPUSH ONE (16:06)
[2024-06-01] MEDS: Heparin Sodium/0.45% NaCl 25,000 UNITS/250 ML BAG IV SCH (16:07)
[2024-06-01] MEDS: Sodium Chloride 0.9% 500 ML IV SCH (16:34)
[2024-06-01] MEDS ORDERED: Acetaminophen 325 MG Tab PO PRN (17:00)
[2024-06-01] MEDS ORDERED: Polyethylene Glycol 3350 Powder 17 GM Packet PO PRN (17:00)
[2024-06-01] MEDS ORDERED: Ondansetron 4 MG/2 ML SDV IVPUSH PRN (17:00)
[2024-06-01] MEDS ORDERED: Heparin Sodium 5,000 Units/ML Vial IVPUSH PRN (17:02)
[2024-06-01] MEDS: Metoprolol Tartrate 25 MG Tab PO SCH (18:35)
[2024-06-01] MEDS: Pantoprazole 40 MG in Sodium Chloride 0.9% 10 ML IVPUSH ONE (18:35)
[2024-06-01] MEDS: Clopidogrel 75 MG Tab PO SCH (18:37)
[2024-06-01] MEDS: Aspirin 81 MG Tab.Chew PO SCH (18:38)
[2024-06-01] MEDS: atorvaSTATin 40 MG Tab PO SCH (20:10)
[2024-06-01] MEDS ORDERED: Melatonin 3 MG Tab PO PRN (21:00)
[2024-06-01] MEDS ORDERED: Docusate Sodium 100 MG Cap PO PRN (21:00)
[2024-06-02] MEDS: Heparin Sodium/0.45% NaCl 25,000 UNITS/250 ML BAG IV SCH (00:05)
[2024-06-02 04:15] LABS: BASOPHILS ABSOLUTE AUTO 0.06 K/uL (0.00-0.20); BASOPHILS PERCENT AUTO 0.6 % (0.0-1.0); EOSINOPHILS ABSOLUTE AUTO 0.32 K/uL (0.00-0.45); EOSINOPHILS PERCENT AUTO 3.3 % (0.0-6.0); HEMATOCRIT 35.5 % (37.0-47.0); HEMOGLOBIN 12.4 g/dL (12.0-16.0); IMMATURE GRAN ABSOLUTE AUTO 0.03 K/uL (0.00-0.05); IMMATURE GRAN PERCENT AUTO 0.3 % (0.0-0.4); LYMPHOCYTES ABSOLUTE AUTO 3.31 K/uL (1.00-4.80); LYMPHOCYTES PERCENT AUTO 34.2 % (24.0-44.0); MEAN CORPUSCULAR HEMOGLOBIN 32.3 pg (28.0-32.0); MEAN CORPUSCULAR HGB CONC 34.9 g/dL (32.0-36.0); MEAN CORPUSCULAR VOLUME 92.4 fL (83.0-99.0); MEAN PLATELET VOLUME 9.8 fL (9.4-12.3); MONOCYTES ABSOLUTE AUTO 0.82 K/uL (0.00-0.80); MONOCYTES PERCENT AUTO 8.5 % (0.0-8.0); NEUTROPHILS ABSOLUTE AUTO 5.14 K/uL (1.80-7.70); NEUTROPHILS PERCENT AUTO 53.1 % (41.0-71.0); PLATELET COUNT,PLT 250 K/uL (150-400); RED BLOOD CELL COUNT 3.84 M/uL (4.10-5.30); WHITE BLOOD CELL COUNT,WBC 9.68 K/uL (3.9-11.3)
[2024-06-02 05:35] LABS: CALCIUM 9.1 mg/dL (8.5-10.1); CREATININE 0.9 mg/dL (0.6-1.0); EST CRCL DRUG DOSING (CG) 38.2 mL/min; POTASSIUM,K 3.9 mmol/L (3.5-5.1)
[2024-06-02] MEDS: Metoprolol Tartrate 25 MG Tab PO SCH (08:24)
[2024-06-02] MEDS: Pantoprazole 40 MG Tab.CR PO SCH (08:24)
[2024-06-02] MEDS: QUEtiapine 25 MG Tab PO SCH (20:07)
[2024-06-03] MEDS: QUEtiapine 25 MG Tab PO SCH (08:04)
[2024-06-03 08:34] VITALS: BP 151/74; PULSE 78
== END 2024-06-03 08:55 | DRG 282 ==
LOC: MW.ED 10:44 → MW.MS 15:23 → OBSVTOIN 16:58
PROVIDERS: ADMIT Family Medicine; ATTEND Family Medicine
DX: I21.4 Non-ST elevation (NSTEMI) myocardial infarction (principal); I24.89 Other forms of acute ischemic heart disease; Z66 Do not resuscitate; Z75.8 Other problems related to medical facilities and other health care; I10 Essential (primary) hypertension; G30.9 Alzheimer's disease, unspecified; F02.C0 Dementia in other diseases classified elsewhere, severe, without behavioral disturbance, psychotic disturbance, mood disturbance, and anxiety; F32.A Depression, unspecified; E86.0 Dehydration; K58.9 Irritable bowel syndrome, unspecified; Z98.51 Tubal ligation status; Z79.899 Other long term (current) drug therapy
CPT/HCPCS: 36415; 70450; 71045; 80053; 83036; 84484 ×3; 85025; 85610; 85730; 93005 ×2; 96365; 99285; J1644 ×2; J7040; 80048; 80061; 93246; 93306; A9270-GY; J2470